=== PATIENT | female | born 1955 | race Caucasian/White ===

== ENCOUNTER 2017-09-12 20:06 | Emergency (ER) | payer OTHER ==
[~2017-09-12] VITALS: Ht 167.6 cm; Wt 78.5 kg
[~2017-09-12 20:06] MED LIST: ACET-787 PO; ATI.5 PO; CLOP75TA PO; DIVA500T1 PO
[2017-09-12 20:11] VITALS: BP 148/100
--- NOTE | 2017-09-12 20:12 | NUR ---
Dr. Walker evaluating patient at bedside.
--- NOTE | 2017-09-12 20:12 | NUR ---
PT JENNY ALS. TAKEN TO BED 4
--- NOTE | 2017-09-12 20:15 | NUR ---
PATIENT IS A 62 Y/O BIB [facility] WHO PRESENTS TO THE ED C/O CHEST PAIN. PT COMES FROM [facility]. WAS GIVEN NITRO 0.4 MG IN THE FIELD, R AC GAUGE 20 IN THE FIELD. PT STATES, "I WAS HAVING CHEST PAIN AND IT HURT." PT REPORTS 9/10 SHARP CHEST PAIN THAT DOES NOT RADIATE. PT REPORTS SOB, LUNG SOUNDS CLEAR BILATERALLY, DENIES N/V/D. PT AAOX4, RR EVEN/UNLABORED. PT REPOSITIONED FOR COMFORT, BED IN LOWEST POSITION. ER MD DR. TOSCANO NOTIFIED. WILL CONTINUE TO MONITOR.
[2017-09-12] MEDS ORDERED: ESCI10TA PO (20:18)
[2017-09-12] MEDS ORDERED: ASPI81CT89 PO (20:18)
[2017-09-12] MEDS ORDERED: DIPH25TA53 PO (20:18)
[2017-09-12] MEDS ORDERED: IBUP-1842 PO (20:18)
[2017-09-12] MEDS ORDERED: ARIP2TAB2 PO (20:18)
[2017-09-12] MEDS ORDERED: ARIP15TA1 PO (20:18)
[2017-09-12] MEDS ORDERED: NITROGLYCERIN 0.4 MG TAB SL ONE ×2 (20:25→21:55)
[2017-09-12 21:14] LABS: HEMATOCRIT 37.7 % (36-48); HEMOGLOBIN 12.9 g/dL (12.0-16.0); MEAN CORPUSCULAR HEMOGLOBIN 32 pg (27-31); MEAN CORPUSCULAR HGB CONC 34 g/dL (33-37); MEAN CORPUSCULAR VOLUME 95 fL (80-94); PLATELET COUNT (AUTO) 267 K/uL (140-450); RED BLOOD CELL COUNT(AUTO) 3.98 MIL/uL (4.20-5.40); RED CELL DISTRIBUTION WIDTH 13.7 % (11.6-13.7)
[2017-09-12 21:26] LABS: ANION GAP 12.4 (8-16); CREATININE 0.7 mg/dL (0.6-1.3); POTASSIUM 3.4 mmol/L (3.5-5.1)
[2017-09-12 21:27] LABS: BASOPHILS % (MANUAL) 0 % (0-2); EOSINOPHILS % (MANUAL) 6 % (0-4); LYMPHOCYTES % (MANUAL) 37 % (20-46); MONOCYTES % (MANUAL) 6 % (5-12)
[2017-09-12 21:28] LABS: ALBUMIN 3.5 g/dL (3.4-5.0); TOTAL BILIRUBIN 0.2 mg/dL (0.0-1.0)
[2017-09-12 21:37] LABS: CREATINE KINASE MB 4.8 ng/mL (0-3.6)
[2017-09-12 21:43] LABS: BARBITURATE, URINE NEG. ng/ml (NEG <=200); BENZODIAZEPINE, URINE NEG. ng/mL (NEG <=200); CANNABINOID, URINE NEG. ng/mL (NEG <=50); COCAINE, URINE NEG. ng/mL (NEG <=300); OPIATE, URINE NEG. ng/mL (NEG <=2000); PHENCYCLIDINE SCREEN,URINE NEG. ng/mL (NEG <=25)
[2017-09-12] MEDS ORDERED: LORazepam 2 MG/ML VIAL IVP PRN (22:10)
[2017-09-12] MEDS ORDERED: NITROGLYCERIN 0.4 MG TAB SL PRN (22:10)
[2017-09-12] MEDS ORDERED: ACETAMINOPHEN 325 MG TAB PO PRN (22:10)
[2017-09-12] MEDS ORDERED: ZOLPIDEM 5 MG TAB PO PRN (22:10)
[2017-09-12] MEDS ORDERED: MORPHINE SULFATE 2 MG/ML SYR IVP PRN (22:10)
[2017-09-12] MEDS ORDERED: ONDANSETRON 4 MG/2 ML VIAL IVP PRN (22:10)
[2017-09-12] MEDS ORDERED: POTASSIUM CHLORIDE 10 MEQ TABER PO ONE (22:20)
--- NOTE | 2017-09-12 22:45 | NUR ---
Patient will be admitted to care of DR. AMES. Admited to TELE. Will go to room 118. Belongings list completed. Report to PINA PLEITEZ.
[2017-09-12 22:50] VITALS: BP 156/87
--- NOTE | 2017-09-12 22:50 | NUR ---
PT ARRIVED ON UNIT VIA GURNEY FROM ER. PT HAD C/O CHEST PAIN. DX CHEST PAIN. PT IS AAOX4, AMBULATORY, NO S/S OF DISTRESS NOTED IN STABLE CONDITION. PT IS ON 2L O2 VIA NC. IV TO R HAND 20G, PATENT AND INTACT SALINE LOCK. SKIN IS INTACT, PT IS WARM AND DRY. COLOR WNL. BOWEL SOUNDS PRESENT. RESPIRATIONS EVEN AND UNLABORED. INITIAL ASSESSMENT COMPLETED. PLAN OF CARE DISCUSSED WITH PT AT THE BEDSIDE, PT VERBALIZED UNDERSTANDING. ALL SAFETY PRECAUTIONS MET, CALL LIGHT WITHIN REACH, WILL CONTINUE TO MONITOR
--- NOTE | 2017-09-12 23:05 | NUR ---
PAGED DR. AMES TO CLARIFY IF PT NEEDED FLUIDS. DR. AMES STATED PT WILL BE SALINE LOCK
--- NOTE | 2017-09-13 02:30 | NUR ---
PT RESTING IN BED COMFORTABLE, NO S/S OF DISTRESS NOTED. ALL SAFETY PRECAUTIONS MET, CALL LIGHT WITHIN REACH. WILL CONTINUE TO MONITOR
[2017-09-13 04:00] VITALS: BP 146/96
[2017-09-13 05:35] LABS: HEMATOCRIT 37.9 % (36-48); HEMOGLOBIN 12.7 g/dL (12.0-16.0); MEAN CORPUSCULAR HEMOGLOBIN 32 pg (27-31); MEAN CORPUSCULAR HGB CONC 34 g/dL (33-37); MEAN CORPUSCULAR VOLUME 95 fL (80-94); PLATELET COUNT (AUTO) 252 K/uL (140-450); RED BLOOD CELL COUNT(AUTO) 3.98 MIL/uL (4.20-5.40); RED CELL DISTRIBUTION WIDTH 13.7 % (11.6-13.7); WHITE BLOOD COUNT (AUTO) 6.6 K/uL (4.8-10.8)
[2017-09-13 06:04] LABS: CREATINE KINASE MB 3.5 ng/mL (0-3.6)
[2017-09-13 06:33] LABS: ANION GAP 8.4 (8-16); CARBON DIOXIDE 30.9 mmol/L (21-32); CREATININE 0.7 mg/dL (0.6-1.3); POTASSIUM 4.3 mmol/L (3.5-5.1)
[2017-09-13 06:53] LABS: EOSINOPHILS % (MANUAL) 2 % (0-4); LYMPHOCYTES % (MANUAL) 46 % (20-46); MONOCYTES % (MANUAL) 10 % (5-12)
--- NOTE | 2017-09-13 07:20 | NUR ---
ENDORSED PLAN OF CARE TO SHAKILA RN AT THE BEDSIDE FOR CONTINUATION OF CARE. PT REMAINS STABLE. NO S/S OF DISTRESS NOTED.
--- NOTE | 2017-09-13 07:21 | NUR ---
RECEIVED REPORT FROM THE CARDIOPULMONARY SPECIALIST NURSE AT BEDSIDE FOR CONTINUITY OF CARE. PT IS AWAKE AND ORIENTED. NO SIGNS OF DISTRESS. DENIED ANY SOB OR CHEST PAINS. PT IS WEARING A NC O2 2L, SATURATING AT 99%. I ASKED HER TO TAKE IT OFF AND TO SEE HOW SHE DOES WITHOUT THE NC. V/S WITHIN NORMAL LIMITS. PT SKIN IS INTACT. IV ON R HAND 20G SL. IV IS PATENT AND DRY AND INTACT. PER DR. FERREIRA, WAIT ON 3RD TROPONIN, IF NORMAL SHE CAN BE DC'D. WILL CONTINUE TO MONITOR PT.
[2017-09-13 08:00] VITALS: BP 149/91
[2017-09-13] MEDS ORDERED: METOPROLOL 25 MG TAB PO SCH (09:00)
[2017-09-13] MEDS ORDERED: ESCITALOPRAM 20 MG TAB PO SCH (09:00)
[2017-09-13] MEDS ORDERED: ENOXAPARIN 40 MG/0.4 ML SYR SUBQ SCH (09:00)
[2017-09-13] MEDS ORDERED: ASPIRIN 81 MG TAB.CHEW PO SCH ×2 (09:00)
[2017-09-13] MEDS ORDERED: ARIPiprazole 10 MG TAB PO SCH (09:00)
[2017-09-13] MEDS: IBUPROFEN 800 MG TAB PO SCH ×2 (09:12→13:00)
--- NOTE | 2017-09-13 09:22 | NUR ---
ADMINISTERED MORNING MEDS. HELD METOPROLOL D/T LOW HR 57. PT TOLERATED WELL. WILL CONTINUE TO MONITOR PT.
--- NOTE | 2017-09-13 10:02 | NUR ---
PATIENT HAS BEEN SCREENED AND CATEGORIZED MODERATE RISK. PATIENT WILL BE SEEN WITHIN 3-5 DAYS OF ADMISSION. 09/15/17 TO 09/17/[address]
--- NOTE | 2017-09-13 11:17 | NUR ---
PT RESTING COMFORTABLY. NO SIGNS OF SOB. WATCHING TV. DENIES PAIN. WILL CONTINUE TO MONITOR PT.
[2017-09-13 12:00] VITALS: BP 131/85
--- NOTE | 2017-09-13 13:00 | NUR ---
PT REFUSED IBUPROFEN. DID NOT ADMINISTER.
[2017-09-13 14:24] LABS: CREATINE KINASE MB 2.7 ng/mL (0-3.6)
[2017-09-13] MEDS ORDERED: ASPI81CT89 PO (15:01)
[2017-09-13] MEDS ORDERED: METO25TA PO (15:03)
[2017-09-13] MEDS ORDERED: NITR0.4T2 SL (15:05)
[2017-09-13] MEDS ORDERED: ATOR40TA PO (15:06)
--- NOTE | 2017-09-13 15:30 | NUR ---
CONTACTED THE BOARD AND CARE. NO COLLEGE SPORTS COACH. CALLED SON, OUT OF TOWN. CALLED THE DISHWASHING MACHINE OPERATOR FOR A TAXI VOUCHER.
--- NOTE | 2017-09-13 15:40 | NUR ---
GOT ALL PT MED FROM PHARMACY. GAVE TO PT TO TAKE WITH HER.
--- NOTE | 2017-09-13 15:50 | NUR ---
WENT OVER D/C INFORMATION W/ PT. PT VERBALIZED UNDERSTANDING. REMOVED THE TELE MONITOR, IV, CANNULA INTACT. NO BLEEDING NOTED. REMOVED ID BANDS. PT WILL GET DRESSED AND GATHER HER THINGS. WHEN THE TAXI CAB GETS HERE, WE WILL TAKE HER OUTSIDE.
--- NOTE | 2017-09-13 16:00 | NUR ---
CALLED AND REQUESTED A TAXI. HAVE THE VOUCHER. THEY WILL BE HERE IN 30 MIN.
--- NOTE | 2017-09-13 16:29 | NUR ---
GIORGIO WHEELED PT OUT TO THE LOBBY W/ VOUCHER IN HAND. PT WITH HER PERSONAL BELONGINGS. PT IN STABLE CONDITION.
[2017-09-13] MEDS ORDERED: diphenhydrAMINE 50 MG CAP PO PRN (21:00)
[2017-09-13] MEDS ORDERED: NON-FORMULARY ITEM (Aripiprazole (Abilify) 2 MG) PO SCH (21:00)
[2017-09-13] MEDS ORDERED: ABILIFY 2 MG PO SCH (21:00)
== END 2017-09-13 16:30 ==
LOC: MED 20:06 → MTU 22:12
PROVIDERS: ADMIT Hospitalist; ATTEND Hospitalist
DX: R07.89 Other chest pain (principal); R14.0 Abdominal distension (gaseous); K29.70 Gastritis, unspecified, without bleeding; I25.10 Atherosclerotic heart disease of native coronary artery without angina pectoris; I10 Essential (primary) hypertension; E78.00 Pure hypercholesterolemia, unspecified; F32.3 Major depressive disorder, single episode, severe with psychotic features; F41.9 Anxiety disorder, unspecified
CPT/HCPCS: 36415; 71010; 80048; 80053; 80305; 82550; 82553; 83690; 84484; 85025; 87081; 93005; 96372; 99285; G0378; J1650; Q0092

== ENCOUNTER 2017-10-09 19:28 | Inpatient (IN) | payer OTHER ==
[~2017-10-09] VITALS: Ht 167.6 cm; Wt 78.6 kg
[~2017-10-09 19:28] MED LIST changes: -ACET-787 PO; +ARIP15TA1 PO; +ARIP2TAB2 PO; +ASPI81CT89 PO; -ATI.5 PO; +ATOR40TA PO; -CLOP75TA PO; +DIPH25TA53 PO; -DIVA500T1 PO; +ESCI10TA PO; +IBUP-1842 PO; +METO25TA PO; +NITR0.4T2 SL
--- NOTE | 2017-10-09 19:30 | NUR ---
BIBA TO ER BED 4
[2017-10-09 19:38] VITALS: BP 158/85
--- NOTE | 2017-10-09 19:38 | NUR ---
Patient being evaluated by physician at bedside.
--- NOTE | 2017-10-09 19:42 | NUR ---
62Y F BIBA S/P MECHANICAL FALL X 1 HOUR FROM [facility]; C/O LOWER BACK AND LEFT LEG PAIN; PT DENIES ANY LOC;KO; NO COMPLAINT OF N/V/D/ SOB/CP AT THE MOMENT;
[2017-10-09 20:52] LABS: BASOPHILS # (AUTO) 0.4 K/uL (0.00-0.22); EOSINOPHILS # (AUTO) 0.4 K/uL (0-0.4); HEMATOCRIT 38.3 % (36-48); HEMOGLOBIN 12.9 g/dL (12.0-16.0); LYMPHOCYTES # (AUTO) 1.5 K/uL (2.5-16.5); MEAN CORPUSCULAR HEMOGLOBIN 31 pg (27-31); MEAN CORPUSCULAR HGB CONC 34 g/dL (33-37); MEAN CORPUSCULAR VOLUME 93 fL (80-94); MONOCYTES # (AUTO) 0.6 K/uL (0.8-1.0); NEUTROPHILS # (AUTO) 3.3 K/uL (1.8-7.7); PLATELET COUNT (AUTO) 233 K/uL (140-450); RED BLOOD CELL COUNT(AUTO) 4.11 MIL/uL (4.20-5.40); RED CELL DISTRIBUTION WIDTH 13.4 % (11.6-13.7); WHITE BLOOD COUNT (AUTO) 6.2 K/uL (4.8-10.8)
[2017-10-09 20:54] LABS: APPEARANCE,URINE CLEAR (CLEAR); BILIRUBIN,URINE NEGATIVE (NEGATIVE); BLOOD, URINE NEGATIVE (NEGATIVE); COLOR,URINE YELLOW (YELLOW); LEUKOCYTE ESTERASE ,URINE NEGATIVE (NEGATIVE); NITRITE, URINE NEGATIVE (NEGATIVE); UGLUCOSE NEGATIVE (NEGATIVE)
[2017-10-09 21:06] LABS: BARBITURATE, URINE NEG. ng/ml (NEG <=200); BENZODIAZEPINE, URINE NEG. ng/mL (NEG <=200); CANNABINOID, URINE NEG. ng/mL (NEG <=50); COCAINE, URINE NEG. ng/mL (NEG <=300); OPIATE, URINE NEG. ng/mL (NEG <=2000); PHENCYCLIDINE SCREEN,URINE NEG. ng/mL (NEG <=25)
[2017-10-09 21:07] LABS: ANION GAP 8.3 (8-16); CARBON DIOXIDE 31.3 mmol/L (21-32); CREATININE 0.7 mg/dL (0.6-1.3); POTASSIUM 3.6 mmol/L (3.5-5.1)
[2017-10-09 21:11] LABS: PROTHROMBIN TIME 10.2 secs (10.8-13.4)
[2017-10-09 21:12] LABS: ALBUMIN 3.4 g/dL (3.4-5.0); TOTAL BILIRUBIN 0.2 mg/dL (0.0-1.0)
[2017-10-09] MEDS ORDERED: ONDANSETRON 4 MG/2 ML VIAL IVP PRN (22:20)
[2017-10-09] MEDS ORDERED: ACETAMINOPHEN 325 MG TAB PO PRN (22:20)
[2017-10-09] MEDS ORDERED: LORazepam 2 MG/ML VIAL IVP PRN (22:20)
[2017-10-09] MEDS ORDERED: NITROGLYCERIN 0.4 MG TAB SL PRN (22:20)
--- NOTE | 2017-10-09 22:53 | NUR ---
APatient will be admitted to care of DR WHIPPLE. Admited to TELE 113. Will go to room 113. Belongings list completed. Report to PARAMJIT PLEITEZ .
[2017-10-09 23:00] VITALS: BP 132/75
--- NOTE | 2017-10-09 23:00 | NUR ---
PATIENT ADMITTED TO THE UNIT FROM ER. PATIENT AWAKE, ALERT AND ORIENTED. AMBULATORY. NO SIGNS AND SYMPTOMS OF DISTRESS NOTED. PATIENT COMPLAINED OF 6/10 LEG PAIN. WILL MEDICATE. IV SITE NOTED ON RIGHT AC. IV SITE ASYMPTOMATIC, INTACT AND PATENT. FALL RISK PRECAUTIONS AND SEIZURE PRECAUTIONS PUT IN PLACE. BED IN LOWEST POSITION, SIDE RAILS UP AND CALL LIGHT WITHIN REACH. WILL CONTINUE TO MONITOR.
[2017-10-09 23:41] LABS: CREATINE KINASE MB 5.3 ng/mL (0-3.6)
[2017-10-10] VITALS (9 sets, daily range): BP systolic 119–152; BP diastolic 74–89
[2017-10-10] MEDS: HYDROcodone/APAP 5/325 MG 1 TAB TAB PO PRN ×3 (00:15→12:56)
--- NOTE | 2017-10-10 07:31 | NUR ---
PATIENT REPORT GIVEN TO MORNING NURSE AT BEDSIDE. PATIENT IN STABLE CONDITION
[2017-10-10 07:35] LABS: CREATINE KINASE MB 3.5 ng/mL (0-3.6)
--- NOTE | 2017-10-10 07:35 | NUR ---
ENDORSEMENT RECEIVED FROM A MENTAL HYGIENE CONSULTANT NURSE. PATIENT'S RESPIRATION EVEN, UNLABOR. SKIN DRY AND WARM. CALL LIGHT WITHIN REACH. WILL CONTINUE TO MONITOR
--- NOTE | 2017-10-10 08:00 | NUR ---
PATIENT AWAKE, ALERT, ORIENTED X4. PUPILS EQUAL REACTIVE TO LIGHT. RESPIRATION EVEN, LUNGS SOUND CLEAR THROUGHOUT. CARDIAC WITH S1,S2 PRESENT. BOWEL SOUND ACTIVE 4 QUADRANTS. SKIN DRY AND WARM. DENIED N/V, PAIN AT THIS TIME. IV 20G LEFT AC NS @100 ML/HR, PATENT AND INTACT. CALL LIGHT WITHIN REACH. WILL CONTINUE TO MONITOR.
[2017-10-10] MEDS: NACL 0.9% 1,000 ML IV SCH ×3 (08:16→18:16)
[2017-10-10] MEDS: ESCITALOPRAM 20 MG TAB PO SCH (09:00)
[2017-10-10] MEDS ORDERED: IBUPROFEN 800 MG TAB PO SCH (09:00)
[2017-10-10] MEDS ORDERED: ASPIRIN 81 MG TAB.CHEW PO SCH (09:00)
[2017-10-10] MEDS ORDERED: METOPROLOL 25 MG TAB PO SCH (09:00)
[2017-10-10] MEDS ORDERED: ARIPiprazole 10 MG TAB PO SCH (09:00)
[2017-10-10] MEDS ORDERED: IBUPROFEN 800 MG TAB PO PRN (09:00)
[2017-10-10] MEDS: ASPIRIN 81 MG TAB.CHEW PO SCH (09:04)
[2017-10-10] MEDS: ENOXAPARIN 40 MG/0.4 ML SYR SUBQ SCH (09:05)
--- NOTE | 2017-10-10 09:56 | NUR ---
PATIENT HAS BEEN SCREENED AND CATEGORIZED MODERATE NUTRITION RISK. PATIENT WILL BE SEEN WITHIN 3-5 DAYS OF ADMISSION. 10/12/17-10/14/[address]
--- NOTE | 2017-10-10 10:02 | NUR ---
FAXED INITIAL REVIEW TO [facility] [phone] PHONE SRINATH [phone]
--- NOTE | 2017-10-10 10:30 | NUR ---
PATIENT IS AWAKE, ALERT. RESPIRATION EVEN. DENIED PAIN AT THIS TIME. NO DISTRESS NOTED. CALL LIGHT WITHIN REACH. WILL CONTINUE TO MONITOR
--- NOTE | 2017-10-10 11:28 | NUR ---
[id number] RECEIVED CALL FROM LUTHER ANDERSEN PROFESSIONAL BONDSMAN AT [facility] OFFICE [phone] AND SHE STATED THAT SHE WILL FAX OVER [employer] PAPERWORK. STATED THEY MAKE MEDICAL DECISIONS FOR PT BUT IF ANY TREATMENT REQUIRED IS EMERGENT THEN FACILITY SHOULD TREAT PT NEEDED.
--- NOTE | 2017-10-10 12:30 | NUR ---
PATIENT IS AWAKE, ALERT. RESPIRATION EVEN. COMPLAINED OF PAIN 6/10 ON THE LEG AND BACK. WILL MEDICATE PER ORDER. CALL LIGHT WITHIN REACH. WILL CONTINUE TO MONITOR
--- NOTE | 2017-10-10 17:00 | NUR ---
PATIENT AMBULATES WITH A WALKER, WITH RN ASSISTANCE. PATIENT TOLERATED WELL. HR 67. DR. MADRID WAS AT BEDSIDE.
--- NOTE | 2017-10-10 18:32 | NUR ---
PATIENT IS AWAKE, ALERT. SITTING IN BED. RESPIRATION EVEN. DENIED PAIN, DIZZINESS AT THIS TIME. CALL LIGHT WITHIN REACH. WILL CONTINUE TO MONITOR
--- NOTE | 2017-10-10 19:25 | NUR ---
ENDORSEMENT GIVEN TO THE EXCHANGE MECHANIC NURSE. PATIENT IS STABLE AT THIS TIME.
--- NOTE | 2017-10-10 19:36 | NUR ---
RECEIVED REPORT FROM DAY RN JESSENIA. PATIENT WAS SLEEPING, BUT EASY TO AROUSE, ORIENTED X3, NO S/S OF DISTRESS NOTED, RESPIRATION EVEN AND UNLABORED, IV PATENT AND INTACT, CALL LIGHT WITHIN REACH, SAFETY MEASURE ENSURED, WILL CONTINUE TO MONITOR.
[2017-10-10] MEDS ORDERED: diphenhydrAMINE 50 MG CAP PO PRN (21:00)
[2017-10-10] MEDS ORDERED: NON-FORMULARY ITEM (Aripiprazole (Abilify) 2 MG) PO SCH (21:00)
[2017-10-10] MEDS: ATORVASTATIN 20 MG TAB PO SCH (21:15)
--- NOTE | 2017-10-10 21:22 | NUR ---
DUE MEDICATION GIVEN, PATIENT TOLERATED WELL. NO S/S OF DISTRESS NOTED, RESPIRATION EVEN AND UNLABORED, CALL LIGHT WITHIN REACH, SAFETY MEASURE ENSURED, WILL CONTINUE TO MONITOR.
--- NOTE | 2017-10-10 22:55 | NUR ---
PATIENT STATED," I FEEL SHORT OF BREATH.", O2SAT 91%, HR 80, PUT PATIENT ON O2 NC 2L, O2SAT 97%, HR 81, PATIENT STATED," I FEEL MUCH BETTER." INSTRUCTED PATIENT TO CALL WHENEVER FEELS SHORT OF BREATH, PATIENT VERBALIZED UNDERSTANDING. CALL LIGHT WITHIN REACH, SAFETY MEASURE ENSURED, WILL CONTINUE TO MONITOR.
[2017-10-11] VITALS (7 sets, daily range): BP systolic 118–174; BP diastolic 66–98
--- NOTE | 2017-10-11 01:20 | NUR ---
PATIENT WAS SLEEPING, EASY TO AROUSE. VITAL SIGNS STABLE, O2SAT 97%, ON O2 NC 2L, NO S/S OF DISTRESS NOTED, RESPIRATION EVEN AND UNLABORED, CALL LIGHT WITHIN REACH, SAFETY MEASURE ENSURED, WILL CONTINUE TO MONITOR.
--- NOTE | 2017-10-11 03:03 | NUR ---
NO CHANGE IN CONDITION, PATIENT SLEEPING IN BED, RESPIRATION EVEN AND UNLABORED, CALL LIGHT WITHIN REACH, SAFETY MEASURE ENSURED, WILL CONTINUE TO MONITOR.
[2017-10-11] MEDS: NACL 0.9% 1,000 ML IV SCH ×2 (05:03→07:52)
--- NOTE | 2017-10-11 05:25 | NUR ---
IV PUMP BEEPING FREQUENTLY, PATIENT ASKED ME TO START NEW IV, NEW IV 22G STARTED ON RT WRIST, PATIENT TOLERATED WELL. CALL LIGHT WITHIN REACH, SAFETY MEASURE ENSURED, WILL CONTINUE TO MONITOR.
--- NOTE | 2017-10-11 07:25 | NUR ---
ENDORSED PLAN OF CARE TO STELLA MASSEY, PATIENT IS IN STABLE CONDITION.
--- NOTE | 2017-10-11 08:00 | NUR ---
Patient's Plan of Care was discussed and reviewed with [employer]BESTOS WORKER HELPER: BRYSON PATEL
[2017-10-11] MEDS: ASPIRIN 81 MG TAB.CHEW PO SCH (08:21)
[2017-10-11] MEDS: ESCITALOPRAM 20 MG TAB PO SCH (08:21)
[2017-10-11] MEDS: ENOXAPARIN 40 MG/0.4 ML SYR SUBQ SCH (08:24)
--- NOTE | 2017-10-11 09:00 | NUR ---
DR. WHIPPLE CAME, CHECKED PT. CHART. PER DR. WHIPPLE PT. WILL BE D/C TODAY 10/11/17, AND CONTINUE HOME MEDS. INFORMED DR. WHIPPLE ABOUT PT. VITAL SIGNS AT 0800. NO ORDER RECEIVED. INFORMED CHARGE NURSE KELVIN DAS.
--- NOTE | 2017-10-11 09:25 | NUR ---
ASSUMED CONTINUITY OF CARE. NO SIGNS AND SYMPTOMS OF ACUTE DISTRESS NOTED. INITIAL ASSESSMENT DONE. KEEP COMFORTABLE ON BED. EXPLAINED DIAGNOSIS, PLAN OF CARE, PAIN MANAGEMENT TEACHING, USE OF CALL LIGHT/BED/TV/BATHROOM. VERBALIZED UNDERSTANDING. SEIZURE AND FALL PRECAUTION APPLIED. CALL LIGHT WITHIN REACH.
--- NOTE | 2017-10-11 09:30 | NUR ---
EXPLAINED TO PT. ABOUT MD D/C ORDER, D/C INSTRUCTIONS AND TEACHING, HOME MEDICATIONS CONTINUATION EDUCATION, MD FOLLOW-UP, DISEASE MANAGEMENT TEACHING, PAIN MANAGEMENT TEACHING, DIET. VERBALIZED UNDERSTANDING.
--- NOTE | 2017-10-11 10:09 | NUR ---
CALLED [facility] AT REGARDING PT. D/C. NO RESPONSE RECEIVED. INFORMED CHARGE NURSE KELVIN DAS.
--- NOTE | 2017-10-11 10:16 | NUR ---
CALLED [facility] AT REGARDING PT. D/C. STILL NO RESPONSE RECEIVED. INFORMED CHARGE NURSE.
--- NOTE | 2017-10-11 11:04 | NUR ---
CALLED [facility] AT REGARDING PT. D/C. NO VOICE MAIL SET-UP. STILL NO RESPONSE RECEIVED. INFORMED CHARGE NURSE KELVIN DAS.
--- NOTE | 2017-10-11 12:15 | NUR ---
PAGED DR. WHIPPLE AT REGARDING PT. HIGH BP. LEFT CALLED BACK NUMBER.
--- NOTE | 2017-10-11 12:19 | NUR ---
DR. WHIPPLE CALLED BACK, INFORMED OF PT. VS AT 1200, 97.7 TEMPORAL SCAN, BP 174/98, HR 62, RESP 18, O2 SAT 97% ON 2L/MIN VIA NC. NO C/O PAIN. NO ACUTE DISTRESS NOTED. ALSO INFORMED DR. WHIPPLE ABOUT TELE STRIP AT 1159 SB WITH HEAR RATE OF 48. DR. WHIPPLE SAID HE WILL PUT ORDER FOR HIGH BP AND WILL CONTINUE PT. FOR D/C. INFORMED CHARGE NURSE KELVIN DAS.
--- NOTE | 2017-10-11 12:52 | NUR ---
CALLED MELIA LEW [facility] AT AND INFORMED THAT PT. WILL BE D/C TODAY PER MD ORDER. PER MELIA LEW HE CAN'T ACCEPT PT. DURING WEEKEND DUE TO STAFFING ISSUE AND HE ALREADY SPOKE WITH ALMITA -SILVER RECOVERY OPERATOR YESTERDAY ABOUT PT. BE D/C ON FRIDAY. INFORMED CHARGE NURSE KELVIN DAS. CHARGE NURSE KELVIN DAS CALLED TRANSFER MAN [facility] AND INFORMED OF MELIA LEW INFORMATION.
--- NOTE | 2017-10-11 13:23 | NUR ---
Social Service Note: I called [facility] and spoke with Love. Per Love, they do not have a driver's license examiner available on weekends. I informed her patient will be returning to their facility today. She stated patient's brother may provide transportation to return to facility from hospital. Love stated she does not know patient's brother name or phone number, however, reported patient knows his phone number, charge nurse Dora aware of above information.
--- NOTE | 2017-10-11 13:45 | NUR ---
PT STATED HE DOES NOT HAVE A BROTHER AND ALL HER RELATIVES ARE IN [facility], SHE DOES HAVE ASON IN spring BUT HE CAN NOT PICK HER UP AND BRING HER BACK IN [facility]. WASTE MACHINE TENDER JUAN RAMON NOTIFIED AND STATED TO ARRANGE PT'S TRANSPORTATION AND IF THEY DO ASK FOR AN AUTHORIZATION, [employer] WILL PROVIDE THEM BY FRIDAY. Addendum: 10/12/17 at 3322 by Dora Alvarado RN JORDAN
--- NOTE | 2017-10-11 13:55 | NUR ---
ARRANGED TRANSPORTATION WITH [facility], SPOKE WITH CRYSTAL, EARLIEST ETA THEY CAN GIVE IS AT 7 PM TONIGHT. JUAN RAMON LEE NOTIFIED. Addendum: 10/11/17 at 1416 by Dora Alvarado RN SVEN MADE AWARE.
--- NOTE | 2017-10-11 14:02 | NUR ---
Social Service Note: I called [facility] and spoke with Love. I informed Love patient will be transferred to their facility approximately after 7pm diana, she verbalized understanding.
--- NOTE | 2017-10-11 14:20 | NUR ---
PER COMMUTATOR UNDERCUTTER -JUAN RAMON, SHE CALLED [facility] AND PT. CAN BE D/C EVEN AFTER 190. CHARGE NURSE MADE AWARE.
--- NOTE | 2017-10-11 19:18 | NUR ---
BEDSIDE REPORT GIVEN TO JO BEAN IN STABLE CONDITION. ALSO ENDORSED ABOUT PT. D/C TO [facility].
--- NOTE | 2017-10-11 19:19 | NUR ---
PATIENT SITTING IN A CHAIR IN STABLE CONDITION READY TO BE PICKED UP BY [facility] PATIENT DENIES PAIN AT THIS TIME PATIENT STABLE.
--- NOTE | 2017-10-11 20:16 | NUR ---
SARA ERWIN FOLLOW UP ON [facility] AND TALKED TO NA, HE SAID AT 2100 BECAUSE THEY ARE COMING FROM [place], CALLED [facility] AND SPOKE TO MILTON REGARDING LATE ACCOUNT SERVICE REPRESENTATIVE TIME, SHE SAID "IT'S RAZ, WE CAN ACCEPT HER ANYTIME", STELLA OSORIO MADE AWARE.
[2017-10-11] MEDS: ATORVASTATIN 20 MG TAB PO SCH (20:36)
--- NOTE | 2017-10-11 20:36 | NUR ---
PATIENT TOOK HER ROUTINE MEDS TONIGHT.
--- NOTE | 2017-10-11 20:36 | NUR ---
FUND MANAGER NURSE EVAN CALLED [facility] AND HE WAS TOLD PATIENT WILL BE PICKED UP BY [facility] HE ALSO CALLED [facility] AND INFORMED THEM THAT PATIENT WILL BE PICKED UP FROM HERE AT [facility] AND THEY TOLD FUND MANAGER NURSE EVAN THAT THEY WILL STILL RECEIVE THE PATIENT.PATIENT IS AWARE THAT SHE WILL BE PICKED UP AT [facility] PATIENT VERBALIZES UNDERSTANDING.
--- NOTE | 2017-10-11 21:22 | NUR ---
[facility] CAME AND PICKED UP THE PATIENT BOTH IV SITES HAVE BEEN DISCONTINUED PATIENT HAS NO MORE IV ACCESS AND HAS NO TELEMONITOR AND HAS NO MORE ID WRIST BANDS. PATIENT'S DISCHARGE PAPERWORK GIVEN TO THE TRANSPORTATION PERSON TO TAKE TO [facility] AND PATIENT HAS ALL HER BELONGINGS PATIENT WAS DISCHARGE.
== END 2017-10-11 21:22 | DRG 204 ==
LOC: MED 19:28 → MTU 22:22
PROVIDERS: ADMIT Hospitalist; ATTEND Hospitalist
DX: R55 Syncope and collapse (principal); F25.9 Schizoaffective disorder, unspecified; I10 Essential (primary) hypertension; I25.10 Atherosclerotic heart disease of native coronary artery without angina pectoris; Z88.6 Allergy status to analgesic agent; Z88.2 Allergy status to sulfonamides
CPT/HCPCS: 36415; 70450; 71010; 80053; 80305; 81003; 81025; 82550; 82553; 83735; 83880; 84484; 85025; 85610; 85730; 87081; 93005; 99285; J1650; J7030

== ENCOUNTER 2017-11-25 08:51 | Observation (INO) | payer OTHER ==
[~2017-11-25] VITALS: Ht 161.3 cm; Wt 83.0 kg
[~2017-11-25 08:51] MED LIST changes: -ARIP15TA1 PO; -ARIP2TAB2 PO
[2017-11-25 08:55] VITALS: BP 136/77
[2017-11-25] MEDS ORDERED: NITROGLYCERIN 0.4 MG TAB SL ONE ×2 (09:40→09:58)
[2017-11-25] MEDS ORDERED: ASPIRIN 81 MG TAB.CHEW PO ONE (09:40)
[2017-11-25 09:54] LABS: BASOPHILS # (AUTO) 0.2 K/uL (0.00-0.22); BASOPHILS % (AUTO) 2.2 % (0.0-2.0); EOSINOPHILS # (AUTO) 0.9 K/uL (0-0.4); EOSINOPHILS % (AUTO) 13.8 % (0.0-4.0); HEMATOCRIT 46.6 % (36-48); HEMOGLOBIN 15.2 g/dL (12.0-16.0); LYMPHOCYTES # (AUTO) 1.7 K/uL (2.5-16.5); LYMPHOCYTES % (AUTO) 25.5 % (20.5-51.1); MEAN CORPUSCULAR HEMOGLOBIN 31 pg (27-31); MEAN CORPUSCULAR HGB CONC 33 g/dL (33-37); MEAN CORPUSCULAR VOLUME 94 fL (80-94); MONOCYTES # (AUTO) 0.4 K/uL (0.8-1.0); MONOCYTES % (AUTO) 6.5 % (1.7-9.3); NEUTROPHILS # (AUTO) 3.6 K/uL (1.8-7.7); PLATELET COUNT (AUTO) 250 K/uL (140-450); RED BLOOD CELL COUNT(AUTO) 4.94 MIL/uL (4.20-5.40); RED CELL DISTRIBUTION WIDTH 14.2 % (11.6-13.7); WHITE BLOOD COUNT (AUTO) 6.8 K/uL (4.8-10.8)
[2017-11-25 10:03] LABS: ANION GAP 10.8 (8-16); CREATININE 0.7 mg/dL (0.6-1.3); POTASSIUM 3.8 mmol/L (3.5-5.1)
[2017-11-25 10:13] LABS: ALBUMIN 3.6 g/dL (3.4-5.0); TOTAL BILIRUBIN 0.4 mg/dL (0.0-1.0)
[2017-11-25] MEDS ORDERED: MORPHINE SULFATE 2 MG/ML SYR IVP PRN (10:55)
[2017-11-25] MEDS ORDERED: ZOLPIDEM 5 MG TAB PO PRN (10:55)
[2017-11-25] MEDS ORDERED: ONDANSETRON 4 MG/2 ML VIAL IVP PRN (10:55)
[2017-11-25] MEDS ORDERED: ACETAMINOPHEN 325 MG TAB PO PRN (10:55)
[2017-11-25 12:00] VITALS: BP 127/69
[2017-11-25 16:00] VITALS: BP 112/70
[2017-11-25 20:00] VITALS: BP 114/65
[2017-11-25] MEDS ORDERED: NICOTINE TRANSD SYS 14 MG/24 HR PATCH TD SCH (20:00)
[2017-11-25] MEDS: METOPROLOL 25 MG TAB PO SCH (21:00)
[2017-11-26] VITALS: BP 107/75
[2017-11-26 04:00] VITALS: BP 116/75
[2017-11-26 06:39] LABS: BASOPHILS # (AUTO) 0.3 K/uL (0.00-0.22); BASOPHILS % (AUTO) 3.9 % (0.0-2.0); EOSINOPHILS # (AUTO) 1.1 K/uL (0-0.4); EOSINOPHILS % (AUTO) 14.7 % (0.0-4.0); HEMATOCRIT 37.5 % (36-48); HEMOGLOBIN 12.7 g/dL (12.0-16.0); LYMPHOCYTES # (AUTO) 1.7 K/uL (2.5-16.5); LYMPHOCYTES % (AUTO) 23.2 % (20.5-51.1); MEAN CORPUSCULAR HEMOGLOBIN 32 pg (27-31); MEAN CORPUSCULAR HGB CONC 34 g/dL (33-37); MEAN CORPUSCULAR VOLUME 93 fL (80-94); MONOCYTES # (AUTO) 0.5 K/uL (0.8-1.0); MONOCYTES % (AUTO) 7.3 % (1.7-9.3); NEUTROPHILS # (AUTO) 3.8 K/uL (1.8-7.7); NEUTROPHILS % (AUTO) 50.9 % (42.2-75.2); PLATELET COUNT (AUTO) 238 K/uL (140-450); RED BLOOD CELL COUNT(AUTO) 4.03 MIL/uL (4.20-5.40); RED CELL DISTRIBUTION WIDTH 13.8 % (11.6-13.7); WHITE BLOOD COUNT (AUTO) 7.4 K/uL (4.8-10.8)
[2017-11-26 07:34] LABS: ANION GAP 13.4 (8-16); CARBON DIOXIDE 27.4 mmol/L (21-32); CREATININE 0.8 mg/dL (0.6-1.3); POTASSIUM 3.8 mmol/L (3.5-5.1)
[2017-11-26 07:46] VITALS: BP 125/78
[2017-11-26] MEDS: METOPROLOL 25 MG TAB PO SCH (08:18)
[2017-11-26] MEDS ORDERED: ENOXAPARIN 40 MG/0.4 ML SYR SUBQ SCH (09:00)
[2017-11-26] MEDS ORDERED: ASPIRIN 81 MG TAB.CHEW PO SCH (09:00)
[2017-11-26] MEDS: LORazepam 2 MG/ML VIAL IVP PRN ×2 (09:13→17:18)
[2017-11-26 11:54] VITALS: BP 146/77
[2017-11-26 12:06] LABS: CREATINE KINASE MB 1.5 ng/mL (0-3.6)
[2017-11-26 15:35] VITALS: BP 129/78
== END 2017-11-26 17:45 ==
LOC: MED 08:51 → MTU 10:45 → INTOOBSV 10:45
PROVIDERS: ADMIT Hospitalist; ATTEND Hospitalist
DX: R07.2 Precordial pain (principal); I25.10 Atherosclerotic heart disease of native coronary artery without angina pectoris; E11.9 Type 2 diabetes mellitus without complications; E78.5 Hyperlipidemia, unspecified; F41.9 Anxiety disorder, unspecified; I11.9 Hypertensive heart disease without heart failure; F17.210 Nicotine dependence, cigarettes, uncomplicated; Z90.710 Acquired absence of both cervix and uterus; Z95.5 Presence of coronary angioplasty implant and graft
CPT/HCPCS: 36415; 71045; 80048; 80053; 82550; 82553; 84484; 85025; 87081; 93005; 96372; 96374; 96376; 99285; G0378; J1650; J2060; Q0092

== ENCOUNTER 2018-05-20 10:05 | Emergency (ER) | payer OTHER ==
[~2018-05-20] VITALS: Ht 167.6 cm; Wt 86.2 kg
[~2018-05-20 10:05] MED LIST changes: +ARIP15TA1 PO; +ARIP5TAB8 PO; -METO25TA PO; -NITR0.4T2 SL
[2018-05-20 10:15] VITALS: BP 114/63
--- NOTE | 2018-05-20 10:24 | NUR ---
AMBULATES WITH WALKER TO BED 4 WITH STEADY GAIT
--- NOTE | 2018-05-20 10:30 | NUR ---
62 YO PT C/O BACK PAIN, LLQ ABD PAIN, SOB, AND BILAT LEG SWELLING/EDEMA X 2 MONTHS. DENIES INJURY. DENIES N/V/DIZZINESS. PT STATES SHE HAS CHF BUT HAS NOT BEEN TREATED FOR IT. PT REPORTS INTERMITTENT CONSTIPATION THAT HAS BEEN IMPROVING OVER THE LAST FEW DAYS. REPORTS SHE USUALLY TAKES IBUPROFEN FOR HER PAIN, BUT HER BOARD AND CARE IS "ALL OUT''. PT AAOX4. GCS 15. CMS INTACT. RR EVEN AND UNLABORED. LUNGS CLEAR. SINUS CLAUDETTE NOTED, WITH HR 48. ABD SOFT, NON-TENDER. ER MD NOTIFIED. PT NEEDS MET. SAFETY PRECAUTIONS IN PLACE. WILL CONTINUE TO MONITOR.
--- NOTE | 2018-05-20 10:43 | NUR ---
XRAY AT BEDSIDE
--- NOTE | 2018-05-20 10:43 | NUR ---
XRAY AT BEDSIDE AT THIS TIME.
[2018-05-20 11:29] VITALS: BP 103/63
--- NOTE | 2018-05-20 11:30 | NUR ---
Patient discharged with v/s stable. Written and verbal after care instructions given and explained. Patient alert, oriented and verbalized understanding of instructions. Ambulatory with steady gait on walker. All questions addressed prior to discharge. ID band removed. Patient advised to follow up with PMD. Rx of MiraLax, Mineral oil, and Motrin given. Patient educated on indication of medication including possible reaction and side effects. Opportunity to ask questions provided and answered.
== END 2018-05-20 11:30 | disposition home or self-care (01) ==
LOC: MED 10:05
DX: K59.00 Constipation, unspecified (principal); R60.0 Localized edema; I10 Essential (primary) hypertension; I25.2 Old myocardial infarction; Z88.6 Allergy status to analgesic agent; Z88.2 Allergy status to sulfonamides; Z79.899 Other long term (current) drug therapy; Z86.73 Personal history of transient ischemic attack (TIA), and cerebral infarction without residual deficits; Z85.42 Personal history of malignant neoplasm of other parts of uterus
CPT/HCPCS: 74018; 99283; Q0092

== ENCOUNTER 2018-06-22 00:46 | Emergency (ER) | payer OTHER ==
[~2018-06-22] VITALS: Ht 165.1 cm; Wt 85.7 kg
[2018-06-22 00:50] VITALS: BP 146/81
[2018-06-22] MEDS ORDERED: cefTRIAXone 1,000 MG in LIDOCAINE MPF 1% - 5 mL VIAL 2.1 ML IM ONE (01:30)
[2018-06-22] MEDS ORDERED: KETOROLAC 60 MG/2 ML VIAL IM ONE (01:30)
[2018-06-22 02:32] VITALS: BP 133/73
== END 2018-06-22 02:32 | disposition home or self-care (01) ==
LOC: MED 00:46
DX: N39.0 Urinary tract infection, site not specified (principal); M79.1 Myalgia; I10 Essential (primary) hypertension; Z88.8 Allergy status to other drugs, medicaments and biological substances; Z79.82 Long term (current) use of aspirin; Z79.899 Other long term (current) drug therapy; Z85.42 Personal history of malignant neoplasm of other parts of uterus; Z86.73 Personal history of transient ischemic attack (TIA), and cerebral infarction without residual deficits
CPT/HCPCS: 81002; 96372; 99284; J0696; J1885; J2001

== ENCOUNTER 2018-10-12 01:40 | Inpatient (IN) | payer OTHER ==
[~2018-10-12] VITALS: Ht 167.6 cm; Wt 99.0 kg
[2018-10-12 01:40] VITALS: BP 109/68
--- NOTE | 2018-10-12 01:40 | NUR ---
PT JENNY ALS. TAKEN TO BED 10
--- NOTE | 2018-10-12 01:41 | NUR ---
Dr. Walker evaluating patient at bedside.
--- NOTE | 2018-10-12 01:52 | NUR ---
EKG PERFORMED AT BEDSIDE. PT COVERED IN GOWN DURING PROCEDURE
--- NOTE | 2018-10-12 01:53 | NUR ---
PATIENT BIBA FOR SUBSTERNAL CHEST PAIN. PT STATES CHEST PAIN WOKE HER UP 2 HOURS AGO AND WAS RADIATING DOWN TO KNEES; PAIN FEELS LIKE PRESSURE AND IS 5/10. PT STATES SHE FEELS SOB, HAS HAD A PRODUCTIVE COUGH FOR 2 MONTHS WITH YELLOWS SPUTUM, RR NON-LABORED, SYMMETRICAL, AND LUNG SOUNDS CLER THROUGHOUT. PT REPORTS N/V; SKIN IS PINK/WARM/DRY; AAOX4; VSS; PATIENT POSITIONED FOR COMFORT; HOB ELEVATED; BEDRAILS UP X2; BED DOWN. ER MD MADE AWARE OF PT STATUS. MED HX: 4 CO, STENTS PLACED
[2018-10-12] MEDS ORDERED: ASPIRIN 81 MG TAB.CHEW PO ONE (01:55)
[2018-10-12] MEDS ORDERED: NITROGLYCERIN 0.4 MG TAB SL ONE (01:55)
--- NOTE | 2018-10-12 02:05 | NUR ---
X-Ray at bedside.
[2018-10-12] MEDS ORDERED: MORPHINE SULFATE 2 MG/ML SYR IVP ONE (02:20)
[2018-10-12 02:35] LABS: BASOPHILS % (AUTO) 0.2 % (0.0-2.0); EOSINOPHILS # (AUTO) 0.3 K/uL (0-0.4); HEMATOCRIT 37.3 % (36-48); HEMOGLOBIN 12.4 g/dL (12.0-16.0); LYMPHOCYTES # (AUTO) 1.6 K/uL (2.5-16.5); LYMPHOCYTES % (AUTO) 18.4 % (20.5-51.1); MEAN CORPUSCULAR HEMOGLOBIN 31 pg (27-31); MEAN CORPUSCULAR HGB CONC 33 g/dL (33-37); MEAN CORPUSCULAR VOLUME 93.4 fL (80-94); MONOCYTES # (AUTO) 0.8 K/uL (0.8-1.0); MONOCYTES % (AUTO) 9.3 % (1.7-9.3); NEUTROPHILS # (AUTO) 5.9 K/uL (1.8-7.7); NEUTROPHILS % (AUTO) 69.1 % (42.2-75.2); PLATELET COUNT (AUTO) 250 K/uL (140-450); RED CELL DISTRIBUTION WIDTH 14.7 % (11.6-13.7); WHITE BLOOD COUNT (AUTO) 8.5 K/uL (4.8-10.8)
--- NOTE | 2018-10-12 02:42 | NUR ---
PT RESTING IN BNED. VSS. PATIENT STATES PAIN IS DOWN TO 4/10. SAFETY PRECAUTIONS IN PLACE. CONTINUE TO MONITOR
[2018-10-12 02:55] LABS: ALBUMIN 3.3 g/dL (3.4-5.0); ANION GAP 15.1 (8-16); CARBON DIOXIDE 27.9 mmol/L (21-32); TOTAL BILIRUBIN 0.5 mg/dL (0.0-1.0)
[2018-10-12 03:14] LABS: CREATINE KINASE MB 0.4 ng/mL (0-3.6)
[2018-10-12] MEDS ORDERED: NITROGLYCERIN 0.4 MG TAB SL PRN (04:10)
--- NOTE | 2018-10-12 04:21 | NUR ---
Patient will be admitted to care of CLYDE FRYE. Admited to TELE. PT IN ROOM 121A. VSS. Belongings list completed. Report to FANNY PLEITEZ.
--- NOTE | 2018-10-12 04:25 | NUR ---
RECEIVED REPORT FROM OYSTER UNLOADER FOR CONTINUITY OF CARE. PT IS A/OX4, ON 2L O2 VIA NASAL CANNULA. PT AMBULATES WITH ASSISTANCE, AND SKIN IS PINK/WARM/DRY AND INTACT. PT HAS LEFT SIDED RESIDUAL WEAKNESS POST HX: CVA AND SPEECH IS SLIGHTLY SLURRED. PT IS ABLE TO MAKE NEEDS KNOWN, AND ABLE TO FOLLOW COMMANDS. LUNGS SOUNDS DIMINISHED, HR EVEN AND REGULAR. PT HAS 20G IV TO RIGHT HAND, ASYMPTOMATIC AND INTACT. PT DENIES ANY PAIN AT THIS TIME. INITIATED FALL RISK PROTOCOL, APPLIED ALLERGY ARMBAND AND CONTACT ISOLATION SIGN ON ROOM. TOOK MRSA SWAB AND SENT TO LAB. VITAL SIGNS STABLE. NO SIGNS OF DISTRESS NOTED. PT POSITIONED FOR COMFORT. BED RAILS UP X2, BED IN LOWEST POSITION. CALL LIGHT WITHIN REACH. WILL CONTINUE TO MONITOR.
[2018-10-12 05:00] VITALS: BP 100/56
--- NOTE | 2018-10-12 05:00 | NUR ---
CALLED [facility] TO OBTAIN VACCINE RECORDS, NO ANSWER.
--- NOTE | 2018-10-12 05:40 | NUR ---
CALLED [facility] [place] [facility] AGAIN TO OBTAIN VACCINE RECORDS, NO ONE ANSWERED STILL.
--- NOTE | 2018-10-12 06:01 | NUR ---
CARDIAC PANEL ORDERD FOR 0356 NOT DRAWN ITS TO CLOSE FROM THE FIRST ONE, UNABLE TO CANCEL.
--- NOTE | 2018-10-12 07:32 | NUR ---
ENDORSED PT TO DAY SHIFT MAIK ASTUDILLO FOR CONTINUITY OF CARE. PT IN STABLE CONDITION.
--- NOTE | 2018-10-12 07:33 | NUR ---
RECEIVED REPORT FROM NIGHT NURSE. PT IN STABLE CONDITION. RESPIRATIONS EVEN AND UNLABORED. IV 20G, RIGHT HAND, INTACT AND PATENT. BED IN LOW POSITION. REVIEWED CARE PLAN WITH PT, PT VERBALIZED UNDERSTANDING OF PLAN. SAFETY MEASURES IN PLACE. CALL LIGHT AT BEDSIDE. WILL CONTINUE TO MONITOR.
[2018-10-12 08:00] VITALS: BP 102/66
--- NOTE | 2018-10-12 08:06 | NUR ---
PATIENT HAS BEEN SCREENED AND CATEGORIZED MODERATE NUTRITION RISK. PATIENT WILL BE SEEN WITHIN 3-5 DAYS OF ADMISSION. 10/14/18 10/16/[address]
[2018-10-12] MEDS ORDERED: ASPIRIN 81 MG TAB.CHEW PO SCH (09:00)
--- NOTE | 2018-10-12 09:00 | NUR ---
GAVE DUE ORDERED MEDICATION, PT TOLERATED WELL. ASSISTED PT TO RESTROOM WITH STANDBY ASSIST. PT IN STABLE CONDITION. BED IN LOW POSITION. WILL CONTINUE TO MONITOR.
[2018-10-12] MEDS ORDERED: ACETAMINOPHEN 325 MG SUPP RC PRN (09:15)
[2018-10-12] MEDS ORDERED: MORPHINE SULFATE 2 MG/ML SYR IVP PRN (09:15)
--- NOTE | 2018-10-12 10:30 | NUR ---
PT REFUSED TO BE CLEANED BY DESTINATION SIGN REPAIRER STATING SHE WILL BE GOING HOME SOON. PT WAS INFORMED THAT NO ORDERS ARE IN AT THIS TIME FOR HER TO GO HOME. WILL TRY AGAIN LATER DURING SHIFT.
[2018-10-12 11:05] LABS: CREATINE KINASE MB 1.6 ng/mL (0-3.6)
--- NOTE | 2018-10-12 11:15 | NUR ---
PT'S SON ROSSY CALLED TO RECEIVE PT STATUS. PT VERBALIZED PERMISSION TO GIVE SON ROSSY THE INFORMATION, PT DID NOT WANT TO TALK AT THIS TIME. ROSSY
--- NOTE | 2018-10-12 11:20 | NUR ---
CALLED [facility] WHERE PT STAYS TO RECEIVE MEDICATIONS LIST. STAFF WILL FAX MEDICATIONS LIST.
[2018-10-12 12:00] VITALS: BP 112/68
--- NOTE | 2018-10-12 14:00 | NUR ---
PT WATCHING TV LYING IN BED IN STABLE CONDITION. WILL CONTINUE TO MONITOR.
[2018-10-12] MEDS ORDERED: FURO-572 PO (14:57)
[2018-10-12] MEDS ORDERED: BUS5 PO (14:57)
[2018-10-12] MEDS ORDERED: METO25TA PO (14:57)
[2018-10-12] MEDS ORDERED: AMLO10TA PO (14:57)
[2018-10-12] MEDS ORDERED: QUET300T1 PO (14:57)
[2018-10-12] MEDS ORDERED: HYDR25CA1 PO (14:57)
[2018-10-12] MEDS ORDERED: ATOR40TA PO (14:57)
[2018-10-12] MEDS ORDERED: IBUP-2213 PO (14:57)
[2018-10-12] MEDS ORDERED: BENZ1TAB PO (14:57)
[2018-10-12] MEDS ORDERED: RANI15SY PO (14:57)
[2018-10-12] MEDS ORDERED: ASPI81EC98 PO (14:57)
--- NOTE | 2018-10-12 15:00 | NUR ---
SEBAS DOMINGUEZ OF [facility] (PCP) PH# [phone] SCHEDULED PATIENT FOR OUTPATIENT FOLLOW UP ON OCTOBER 19, 2018 9:45 AM AT THE CLINIC IN [address] [place] [address]. I GAVE THE PATIENT A COPY OF HER OUTPATIENT FOLLOW UP SCHEDULE.
[2018-10-12 16:00] VITALS: BP 127/78
--- NOTE | 2018-10-12 17:20 | NUR ---
PT GIVEN DISCHARGE INSTRUCTIONS PACKET, APPOINTMENT DATE FOR FOLLOW UP, ALL QUESTIONS ANSWERED AT THIS TIME, PT VERBALIZED UNDERSTANDING OF INSTRUCTIONS. IV REMOVED, LUMEN INTACT. ID REMOVED. PT WHEELED TO LOBBY WHERE [facility] [employer] HOME BATTERY CONTAINER FINISHING HAND WAS WAITING. PT IN STABLE CONDITION.
[2018-10-12] MEDS ORDERED: ATORVASTATIN 20 MG TAB PO SCH (21:00)
== END 2018-10-12 17:20 | disposition home or self-care (01) | DRG 203 ==
LOC: MED 01:40 → MTU 03:44 → OBSVTOIN 05:08
PROVIDERS: ADMIT Hospitalist; ATTEND Hospitalist
DX: M94.0 Chondrocostal junction syndrome [Tietze] (principal); I69.354 Hemiplegia and hemiparesis following cerebral infarction affecting left non-dominant side; R07.89 Other chest pain; I25.10 Atherosclerotic heart disease of native coronary artery without angina pectoris; I10 Essential (primary) hypertension; I25.2 Old myocardial infarction; Z95.5 Presence of coronary angioplasty implant and graft; Z88.6 Allergy status to analgesic agent; Z88.2 Allergy status to sulfonamides; Z85.42 Personal history of malignant neoplasm of other parts of uterus; Z90.710 Acquired absence of both cervix and uterus; Z87.891 Personal history of nicotine dependence
CPT/HCPCS: 96374; 99285; G0378; 36415; 71045; 80053; 82550; 82553; 83690; 84484; 85025; 87081; 93005; G0482; J2270; Q0092

== ENCOUNTER 2018-12-10 17:00 | Emergency (ER) | payer OTHER ==
[~2018-12-10] VITALS: Ht 165.1 cm; Wt 117.5 kg
[~2018-12-10 17:00] MED LIST changes: +AMLO10TA PO; -ARIP15TA1 PO; -ARIP5TAB8 PO; -ASPI81CT89 PO; +ASPI81EC98 PO; +BENZ1TAB PO; +BUS5 PO; -DIPH25TA53 PO; -ESCI10TA PO; +FURO-572 PO; +HYDR25CA1 PO; -IBUP-1842 PO; +IBUP-2213 PO; +METO25TA PO; +QUET300T1 PO; +RANI15SY PO
[2018-12-10 17:02] VITALS: BP 140/90
--- NOTE | 2018-12-10 17:08 | NUR ---
63 YO FEMALE BIB EMS FROM [facility] FOR LUMBAR BACK PAIN. AWAKE AND ALERT ON ARRIVAL. PT VSS AT THIS TIME, PT STATES SHE FINANCIAL BROKERS A BOX YESTERDAY AND HURT HER BACK. SHE WENT TO URGENT CARE EARLIER TODAY AND WITH NO RELIEF. PT BED DOWN, BEDRAIL UP, ER MD AWARE AND NOTIFIED OF PT STATUS. PMH: HTN, STENT
[2018-12-10] MEDS ORDERED: KETOROLAC 60 MG/2 ML VIAL IM ONE (17:45)
--- NOTE | 2018-12-10 17:45 | NUR ---
Patient being evaluated by physician at bedside.
[2018-12-10 19:05] VITALS: BP 135/84
--- NOTE | 2018-12-10 19:05 | NUR ---
Patient discharged with v/s stable. Written and verbal after care instructions given and explained. Patient alert, oriented and verbalized understanding of instructions. Ambulatory with steady gait. All questions addressed prior to discharge. ID band removed. Patient advised to follow up with PMD. Rx of motrin, cipro, and norco given. Patient educated on indication of medication including possible reaction and side effects. Opportunity to ask questions provided and answered.
== END 2018-12-10 19:05 | disposition home or self-care (01) ==
LOC: MED 17:00
DX: N39.0 Urinary tract infection, site not specified (principal); I10 Essential (primary) hypertension; Z88.5 Allergy status to narcotic agent; Z79.82 Long term (current) use of aspirin; Z79.899 Other long term (current) drug therapy
CPT/HCPCS: 81002; 96372; 99283; J1885

== ENCOUNTER 2019-01-29 08:42 | Inpatient (IN) | payer OTHER ==
[~2019-01-29] VITALS: Ht 170.2 cm; Wt 112.9 kg
[2019-01-29 08:44] VITALS: BP 123/70
--- NOTE | 2019-01-29 08:44 | NUR ---
PT BIBA BLS TO BED 7
--- NOTE | 2019-01-29 08:44 | NUR ---
PT BIBA FOR GENERALIZED WEAKNESS. PER MFD PT WAS CHOKING, STAFF AT [facility] PERFORMED HE[place]LICH AND REOMVED FOOD, AND AFTER THAT PT WAS UNABLE TO STAND. PT IS AAOX3, PERRLA, SPEECH IS SLURRED, MILD LEFT SIDED HAND TREATING PLANT PUMPER WEAKNESS, UNSTEADY GAIT. PT STATES THE YEAR WAS "1970", PER MFD SLURRED SPEECH IS PT BASELINE. PT REPORTS SHARP R LEG PAIN AT 3/10 THAT INCREASES WITH MOVEMENT THAT SHE HAS HAD FOR YEARS. VSS. ER TO SEE PT. MEDHX:PR, STENT, CVA, HTN, ANXIETY, HYPERLIPIDEMIA RX:ASPIRIN, LASIX, ATROVASTATIN, AMLODIPINE, HYDROXYZINE, BUSPIRONE, QUETIAPINE, METROPOLOL, BENZZTROPINE, DIELOTENAE
[2019-01-29] MEDS ORDERED: VOL25 PO (08:56)
--- NOTE | 2019-01-29 09:17 | NUR ---
Patient being evaluated by physician at bedside.
[2019-01-29] MEDS ORDERED: NACL 0.9% 500 ML IV SCH (09:20)
--- NOTE | 2019-01-29 09:39 | NUR ---
RT AT BEDSIDE PERFORMING ABG
--- NOTE | 2019-01-29 09:40 | NUR ---
LAB AT BEDSIDE OBTAINING BLOOD SAMPLES
[2019-01-29] MEDS ORDERED: NACL 0.9% 1,000 ML IV ONE (09:45)
--- NOTE | 2019-01-29 09:46 | NUR ---
XRAY AT BEDSIDE
--- NOTE | 2019-01-29 09:53 | NUR ---
PT TAKEN TO RADIOLOGY VIA HIREN
[2019-01-29 09:54] LABS: BASOPHILS # (AUTO) 0.1 K/uL (0.00-0.22); BASOPHILS % (AUTO) 1.3 % (0.0-2.0); EOSINOPHILS # (AUTO) 0.4 K/uL (0-0.4); HEMATOCRIT 39.9 % (36-48); LYMPHOCYTES # (AUTO) 1.5 K/uL (2.5-16.5); LYMPHOCYTES % (AUTO) 25.7 % (20.5-51.1); MEAN CORPUSCULAR HEMOGLOBIN 30 pg (27-31); MEAN CORPUSCULAR HGB CONC 33 g/dL (33-37); MEAN CORPUSCULAR VOLUME 92.5 fL (80-94); MONOCYTES # (AUTO) 0.5 K/uL (0.8-1.0); MONOCYTES % (AUTO) 9.1 % (1.7-9.3); NEUTROPHILS # (AUTO) 3.5 K/uL (1.8-7.7); NEUTROPHILS % (AUTO) 57.9 % (42.2-75.2); PLATELET COUNT (AUTO) 245 K/uL (140-450); RED BLOOD CELL COUNT(AUTO) 4.32 MIL/uL (4.20-5.40); RED CELL DISTRIBUTION WIDTH 15.4 % (11.6-13.7)
[2019-01-29 10:09] LABS: PROTHROMBIN TIME 9.9 secs (10.8-13.4)
[2019-01-29 10:13] LABS: ALBUMIN 3.4 g/dL (3.4-5.0); ANION GAP 13.1 (8-16); CARBON DIOXIDE 28.2 mmol/L (21-32); POTASSIUM 4.3 mmol/L (3.5-5.1); TOTAL BILIRUBIN 0.4 mg/dL (0.0-1.0)
--- NOTE | 2019-01-29 10:15 | NUR ---
PT WAS PUT ON BEDPAN TO OBTAIN URINE SAMPLE. FAISAL ADEN ASSISTING PT WITH GETTING OFF BED LINDSAY, CLEANING PT, AND OBTAINING URINE SAMPLE
[2019-01-29 10:49] LABS: D-DIMER < 100 ng/ml (0-400)
[2019-01-29 11:09] LABS: APPEARANCE,URINE SL CLOUDY (CLEAR); BILIRUBIN,URINE NEGATIVE (NEGATIVE); BLOOD, URINE NEGATIVE (NEGATIVE); COLOR,URINE YELLOW (YELLOW); LEUKOCYTE ESTERASE ,URINE 1+ (NEGATIVE); NITRITE, URINE NEGATIVE (NEGATIVE); PH,URINE 8.5 (5.0-9.0); UGLUCOSE NEGATIVE (NEGATIVE)
[2019-01-29 11:34] LABS: RBC,URINE 0-5 /HPF (0-5)
[2019-01-29] MEDS ORDERED: ONDANSETRON 4 MG/2 ML VIAL IVP PRN (13:15)
[2019-01-29] MEDS ORDERED: ALBUTEROL 0.083% 2.5 MG/3 ML NEBU INH PRN (13:15)
[2019-01-29 14:15] VITALS: BP 114/74
--- NOTE | 2019-01-29 14:15 | NUR ---
RECEIVED REPORT FROM ER NURSE. PATIENT IS AOX4. DENIES PAIN. ON RA. RESPIRATION ASYMMETRICAL AND UNLABORED. NO SIGNS OF DISTRESS NOTED. IV ON R AC 20G, CLEAN AND PATENT, INFUSING PER MD ORDER. SKIN INTACT AND DRY. CONTINENT. ABLE TO AMBULATE WITH STANDBY ASSISTANCE. ORIENTED PATIENT TO THE ROOM, USE THE CALL LIGHT, TV, LIGHT, BED REMOTE, AND BATHROOM. DISCUSSED PLAN OF CARE WITH PATIENT, AND PATIENT VERBALIZED UNDERSTANDING. VITAL SIGNS TAKEN. MRSA SWAP TAKEN. TELE MONITOR ATTACHED. CHANGED PATIENT INTO YELLOW GOWN, SOCKS, AND APPLIED YELLOW WRIST BANDS. FALL RISK PROTOCOL INITIALED. CONTACT PRECAUTION INITIALED. BED IN LOW POSITION. INSTRUCTED PATIENT TO USE THE CALL LIGHT FOR ASSISTANCE AND PATIENT WAS AWARE. CALL LIGHT WITHIN REACH.
--- NOTE | 2019-01-29 14:15 | NUR ---
Patient will be admitted to care of [facility]. Admited to TELE VIA GURNEY WITH VSS. Will go to room 115. Belongings list completed. Report to ARCENIO PLEITEZ.
[2019-01-29] MEDS: DEXT 5% / NACL 0.45% 1,000 ML IV SCH (14:59)
--- NOTE | 2019-01-29 15:01 | NUR ---
PATIENT STATED THAT SHE IS VERY HUNGRY AND WOULD LIKE TO EAT. CALLED [facility] FOR A TURKEY SANDWICH.
--- NOTE | 2019-01-29 15:10 | NUR ---
PATIENT IS EATING HER TURKEY SANDWICH. NO SIGNS OF DISTRESS NOTED.
[2019-01-29 16:00] VITALS: BP 117/73
--- NOTE | 2019-01-29 17:20 | NUR ---
PATIENT IS RESTING ON BED AT THIS TIME. NO SIGNS OF DISTRESS NOTED.
--- NOTE | 2019-01-29 19:20 | NUR ---
ENDORSED PATIENT AT BEDSIDE TO COLOR CONTROL OPERATOR NURSE FOR CONTINUITY OF CARE. PATIENT IS IN STABLE CONDITION.
--- NOTE | 2019-01-29 19:28 | NUR ---
RECEIVED PATIENT ON ROOM AIR, PULSE OX SAT 96%. PATIENT DENIES SOB. NO HHN GIVEN; HHN NOT INDICATED AT THIS TIME. NO RESPIRATORY DISTRESS NOTED. WILL CONTINUE TO MONITOR.
[2019-01-29] MEDS ORDERED: QUEtiapine FUMARATE 100 MG TAB PO SCH (21:00)
--- NOTE | 2019-01-29 21:09 | NUR ---
CALLED DR. ANDRES. MRSA SCREEN. PUT IN THE ORDER.
[2019-01-29] MEDS: hydrOXYzine PAMOATE 25 MG CAP PO SCH (21:10)
[2019-01-29] MEDS: METOPROLOL 25 MG TAB PO SCH (21:11)
--- NOTE | 2019-01-29 21:36 | NUR ---
[facility]SA PATIENT REFUSED EXPLAINED TO HER THE RISKS AND BENEFITS, PT STILL REFUSED. DR. JOHNSON AWARE Addendum: 01/29/19 at 2138 by Caroline Doe RN WRONG PATIENT-PLS DELETE NOTE
[2019-01-29 22:00] VITALS: BP 134/78
[2019-01-30] VITALS: BP 89/64
--- NOTE | 2019-01-30 | NUR ---
PT C/O OF CHEST PAIN 5-6 PAIN SCALE RADIATING TO THE BACK. WILL CALL RUBBER TILE FLOOR LAYER
[2019-01-30] MEDS ORDERED: MORPHINE SULFATE 4 MG/ML SYR IVP PRN (00:20)
--- NOTE | 2019-01-30 00:20 | NUR ---
TALKED TO DR. BRICE SHOE COVERER ORDERED FOR MORPHINE SULFATE. PT ALLERGIC TO CODEINE. BUT PER PT SHE HAD TAKEN MORPHINE BEFORE HAD NO ALLERGY RXNS. DR. BRICE AWARE. HE ALSO ORDERED FOR STAT EKG AND STAT TROP I
--- NOTE | 2019-01-30 00:51 | NUR ---
AGAIN ASKED PT IF SHE IS ALLERGIC CODEINE. SHE SAID SHE'S NOT SURE. BUT SHE HAS TAKEN TO MORPHINE SULFATE ALREADY IN THE PAST. PHARMACY CALLED TO ASK.
[2019-01-30] MEDS ORDERED: MORPHINE SULFATE 2 MG/ML SYR ONE (00:56)
[2019-01-30] MEDS ORDERED: MORPHINE SULFATE 2 MG/ML SYR IVP PRN (01:04)
--- NOTE | 2019-01-30 03:22 | NUR ---
DR. BRICE ORDERED FOR Q8 TROPONIN I X 2 MORE TAKES
--- NOTE | 2019-01-30 03:23 | NUR ---
CHECKED ON PATIENT SLEEPING, NO PAIN FELT VERBALIZED BY PATIENT. NO MORE COMPLAINTS AT THIS TIME. NO ALLERGIES AFTER ADM OF MORPHINE NOTED
[2019-01-30 04:00] VITALS: BP 97/62
[2019-01-30] MEDS: DEXT 5% / NACL 0.45% 1,000 ML IV SCH (04:53)
--- NOTE | 2019-01-30 06:46 | NUR ---
WILL ENDORSE TO NEXT SHIFT FOR CONTINUITY OF CARE. FOR MONITORING OF RECURRENCE OF CHEST PAIN.
[2019-01-30 07:10] LABS: BASOPHILS # (AUTO) 0.1 K/uL (0.00-0.22); BASOPHILS % (AUTO) 1.2 % (0.0-2.0); EOSINOPHILS # (AUTO) 0.4 K/uL (0-0.4); EOSINOPHILS % (AUTO) 6.4 % (0.0-4.0); HEMATOCRIT 36.9 % (36-48); HEMOGLOBIN 12.1 g/dL (12.0-16.0); LYMPHOCYTES # (AUTO) 2.1 K/uL (2.5-16.5); LYMPHOCYTES % (AUTO) 36.9 % (20.5-51.1); MEAN CORPUSCULAR HEMOGLOBIN 30 pg (27-31); MEAN CORPUSCULAR HGB CONC 33 g/dL (33-37); MONOCYTES # (AUTO) 0.6 K/uL (0.8-1.0); NEUTROPHILS # (AUTO) 2.5 K/uL (1.8-7.7); NEUTROPHILS % (AUTO) 45.5 % (42.2-75.2); PLATELET COUNT (AUTO) 221 K/uL (140-450); RED BLOOD CELL COUNT(AUTO) 3.97 MIL/uL (4.20-5.40); RED CELL DISTRIBUTION WIDTH 15.3 % (11.6-13.7); WHITE BLOOD COUNT (AUTO) 5.6 K/uL (4.8-10.8)
--- NOTE | 2019-01-30 07:15 | NUR ---
RECEIVED REPORT FROM [employer] DEVELOPER NURSE. PATIENT IS RESTING ON BED AND WATCHING TV AT THIS TIME. AOX4. DENIES PAIN. ON RA. RESPIRATION ASYMMETRICAL AND UNLABORED. NO SIGNS OF DISTRESS NOTED. IV ON R AC 20G, CLEAN AND PATENT, INFUSING PER MD ORDER. SKIN INTACT AND DRY. CONTINENT. BEDSIDE COMMODE AT BEDSIDE. ABLE TO AMBULATE WITH STANDBY ASSISTANCE. DISCUSSED PLAN OF CARE WITH PATIENT, AND PATIENT VERBALIZED UNDERSTANDING. TELE MONITOR ATTACHED. FALL RISK PROTOCOL INITIALED. CONTACT PRECAUTION INITIALED. BED IN LOW POSITION. INSTRUCTED PATIENT TO USE THE CALL LIGHT FOR ASSISTANCE AND PATIENT WAS AWARE. BED IN LOW POSITION, AND CALL LIGHT WITHIN REACH.
--- NOTE | 2019-01-30 07:57 | NUR ---
PATIENT HAS BEEN SCREENED AND CATEGORIZED MODERATE NUTRITION RISK. PATIENT WILL BE SEEN WITHIN 3-5 DAYS OF ADMISSION. 01/31/19-02/02/[address]
[2019-01-30 08:00] VITALS: BP 130/75
[2019-01-30] MEDS ORDERED: ENOXAPARIN 40 MG/0.4 ML SYR SUBQ SCH (09:00)
[2019-01-30] MEDS ORDERED: amLODIPine 5 MG TAB PO SCH (09:00)
[2019-01-30] MEDS ORDERED: BENZTROPINE 1 MG TAB PO SCH (09:00)
[2019-01-30] MEDS ORDERED: ASPIRIN 81 MG TAB.CHEW PO SCH (09:00)
[2019-01-30] MEDS ORDERED: ATORVASTATIN 20 MG TAB PO SCH (09:00)
[2019-01-30] MEDS ORDERED: FUROSEMIDE 20 MG TAB PO SCH (09:00)
[2019-01-30 09:16] LABS: ALBUMIN 3.1 g/dL (3.4-5.0); ANION GAP 15.9 (8-16); CARBON DIOXIDE 25.7 mmol/L (21-32); CREATININE 0.9 mg/dL (0.6-1.3); POTASSIUM 4.6 mmol/L (3.5-5.1); TOTAL BILIRUBIN 0.3 mg/dL (0.0-1.0)
[2019-01-30] MEDS: hydrOXYzine PAMOATE 25 MG CAP PO SCH (10:12)
[2019-01-30] MEDS: METOPROLOL 25 MG TAB PO SCH (10:13)
--- NOTE | 2019-01-30 10:14 | NUR ---
CHECKED BP PRIOR TO MED ADMINISTRATION, BP IS 115/66 AND PULSE 61[address] NOT[address] MIMS AND HE IS AWARE. PER DR, HOLD METOPROLOL AND NORVAC. PATIENT TOLERATED WELL. WATCHING TV ON BED. DENIES CHEST PAIN AND SOB. NO SIGNS OF DISTRESS.
--- NOTE | 2019-01-30 11:27 | NUR ---
PATIENT IS RESTING ON BED. DENIES PAIN AND SOB. NO SIGNS OF DISTRESS NOTED. SAFETY MEASURES IN PLACE.
[2019-01-30 12:00] VITALS: BP 110/63
--- NOTE | 2019-01-30 12:20 | NUR ---
CONTACTED [facility] [phone] AND INFORMED THAT PATIENT WILL BE DISCHARGE TODAY FROM HOSPITAL. SPOKE WITH JIM ROUSSEAU. PER JIM, THE ONLY TRANSPORT VEHICLE THEY HAVE WAS BROKEN DOWN AND THEY ARE NOT ABLE TO GET ANOTHER TRANSPORT VEHICLE TO [employer]AL MIXER PATIENT AT THIS TIME. INFORMED JIM THAT THE HOSPITAL WILL ARRANGE THE TRANSPORTATION WITH WHEELCHAIR FOR DISCHARGE AND THE BILL WILL BE SEND TO [facility]. JIM WAS AWARE AND ACKNOWLEDGED. CHARGE NURSE NOTIFIED AND WAS AWARE OF ABOVE INFORMATION.
--- NOTE | 2019-01-30 12:30 | NUR ---
CONTACTED PATIENT'S SON NATASHA AND NOTIFIED THAT PATIENT WILL BE DISCHARGED TODAY AND SHE IS GOING BACK TO [facility]. NATASHA ACKNOWLEDGED AND WAS WALLACE OF THIS EVENT.
--- NOTE | 2019-01-30 14:25 | NUR ---
PATIENT IS RESTING ON BED. WAITING FOR TRANSPORTATION TO BE ARRIVED. DENIES PAIN AND SOB. NO SIGNS OF DISTRESS NOTED.
--- NOTE | 2019-01-30 15:15 | NUR ---
DISCHARGE INSTRUCTION PROVIDED TO PATIENT AT BEDSIDE. EDUCATED PATIENT ON DISEASE MANAGEMENT, SIGNS AND SYMPTOMS, FOLLOW UP WITH PCP, MEDICATION REGIMENS, MEDICATION SIDE EFFECTS, AND DIET REGIMENS. PATIENT VERBALIZED UNDERSTANDING. D/C IV AND IV CANNULA INTACT, NO BLEEDING AT INSERT SITE. REMOVED ALL ARMBANDS. PATIENT TOOK ALL HER BELONGINGS. PATIENT TRANSFERRED INTO [facility]. PATIENT IS IN STABLE CONDITION. PATIENT IS DISCHARGE AT THIS TIME.
--- NOTE | 2019-01-30 18:45 | NUR ---
DISCHARGE DOCUMENTS HAS PREPARED. PATIENT IS CHANGING INTO HER OWN CLOTHES. Addendum: 01/30/19 at 1847 by Faiza Waters RN [facility] TIME, 0714
--- NOTE | 2019-02-01 10:59 | NUR ---
CALLED DR. KATY MELENDREZ'S OFFICE AND MADE A FOLLOW UP APPOINTMENT WITH HIM FOR MONDAY, FEBRUARY 05 AT 10:30A.M. AD[address]ESS [id number] ESCOBAR GOMEZ ALBION PHONE [phone]. I CALLED [facility]S PHONE AND SPOKE WITH ELTON. THE PATIENT LIVES AT [facility]. I GAVE THE INFORMATION TO ELTON AND SHE WILL TELL DEXTER AND MAKE SURE SHE GOES TO THE APPOINTMENT.
== END 2019-01-30 15:15 | disposition home or self-care (01) | DRG 204 ==
LOC: MED 08:42 → MTU 13:45
PROVIDERS: ADMIT Internal Medicine; ATTEND Internal Medicine
DX: R55 Syncope and collapse (principal); I11.0 Hypertensive heart disease with heart failure; I50.9 Heart failure, unspecified; F20.9 Schizophrenia, unspecified; N39.0 Urinary tract infection, site not specified; R09.89 Other specified symptoms and signs involving the circulatory and respiratory systems; I25.10 Atherosclerotic heart disease of native coronary artery without angina pectoris; E66.9 Obesity, unspecified; E78.5 Hyperlipidemia, unspecified; Z88.5 Allergy status to narcotic agent; Z79.82 Long term (current) use of aspirin; Z88.2 Allergy status to sulfonamides; Z79.899 Other long term (current) drug therapy; Z86.73 Personal history of transient ischemic attack (TIA), and cerebral infarction without residual deficits; I25.2 Old myocardial infarction; Z90.710 Acquired absence of both cervix and uterus; Z82.49 Family history of ischemic heart disease and other diseases of the circulatory system; Z87.891 Personal history of nicotine dependence; Z95.5 Presence of coronary angioplasty implant and graft; Z68.39 Body mass index [BMI] 39.0-39.9, adult
CPT/HCPCS: 36415; 36600; 70450; 71045; 80053; 81001; 82550; 82553; 82803; 82948; 83605; 83735; 83880; 84484; 85025; 85379; 85610; 85730; 87040; 87081; 87086; 93005; 99285; G0482; J1650; J2270; J2405; Q0177

== ENCOUNTER 2019-12-15 16:19 | Inpatient (IN) | payer OTHER ==
[~2019-12-15] VITALS: Ht 162.6 cm; Wt 81.6 kg
[~2019-12-15 16:19] MED LIST changes: +VOL25 PO
[2019-12-15 16:25] VITALS: BP 117/68
--- NOTE | 2019-12-15 16:27 | NUR ---
PT BIBA TO BED 10
--- NOTE | 2019-12-15 16:30 | NUR ---
BIBA C/O ABDOMINAL PAIN WITH DIARRHEA X 1 WEEK. DENIES CP, FEVER, OR N/V. PATIENT STATES PAIN OF 8/10 AT THIS TIME; VSS; PATIENT POSITIONED FOR COMFORT; HOB ELEVATED; BEDRAILS UP X2; BED DOWN. ER MD MADE AWARE OF PT STATUS. PT IS ON MONITOR.
[2019-12-15] MEDS ORDERED: NACL 0.9% 2,000 ML IV SCH (16:39)
[2019-12-15] MEDS ORDERED: DIPHENOXYLATE /ATROPINE 2.5 MG TAB PO ONE (16:40)
[2019-12-15] MEDS ORDERED: FAMOTIDINE 20 MG/2 ML VIAL IVP ONE (16:40)
[2019-12-15] MEDS ORDERED: ONDANSETRON 4 MG/2 ML VIAL IVP ONE (16:40)
--- NOTE | 2019-12-15 17:03 | NUR ---
FSP HOTLINE GIVEN BY [facility] SERVICE STATION ATTENDANT FOR ANY ISSUES
--- NOTE | 2019-12-15 17:20 | NUR ---
PT URINATED AT BEDSIDE. URINE OUTPUT 20ML.
[2019-12-15 17:33] LABS: BASOPHILS # (AUTO) 0.1 K/uL (0.00-0.22); BASOPHILS % (AUTO) 1.4 % (0.0-2.0); EOSINOPHILS # (AUTO) 0.3 K/uL (0-0.4); EOSINOPHILS % (AUTO) 4.3 % (0.0-4.0); HEMATOCRIT 42.2 % (36-48); HEMOGLOBIN 13.9 g/dL (12.0-16.0); LYMPHOCYTES # (AUTO) 2.8 K/uL (2.5-16.5); LYMPHOCYTES % (AUTO) 35.9 % (20.5-51.1); MEAN CORPUSCULAR HEMOGLOBIN 30 pg (27-31); MEAN CORPUSCULAR HGB CONC 33 g/dL (33-37); MEAN CORPUSCULAR VOLUME 91.8 fL (80-94); MONOCYTES # (AUTO) 0.7 K/uL (0.8-1.0); MONOCYTES % (AUTO) 9.1 % (1.7-9.3); NEUTROPHILS # (AUTO) 3.8 K/uL (1.8-7.7); NEUTROPHILS % (AUTO) 49.3 % (42.2-75.2); PLATELET COUNT (AUTO) 259 K/uL (140-450); RED CELL DISTRIBUTION WIDTH 14.4 % (11.6-13.7); WHITE BLOOD COUNT (AUTO) 7.7 K/uL (4.8-10.8)
[2019-12-15 17:36] LABS: APPEARANCE,URINE SL CLOUDY (CLEAR); BILIRUBIN,URINE NEGATIVE (NEGATIVE); BLOOD, URINE NEGATIVE (NEGATIVE); COLOR,URINE YELLOW (YELLOW); LEUKOCYTE ESTERASE ,URINE 1+ (NEGATIVE); NITRITE, URINE NEGATIVE (NEGATIVE); PH,URINE 5.5 (5.0-9.0); UGLUCOSE NEGATIVE (NEGATIVE)
[2019-12-15 17:45] LABS: ALBUMIN 3.6 g/dL (3.4-5.0); ANION GAP 13.9 (8-16); CARBON DIOXIDE 28.8 mmol/L (21-32); POTASSIUM 3.7 mmol/L (3.5-5.1); TOTAL BILIRUBIN 0.4 mg/dL (0.0-1.0)
--- NOTE | 2019-12-15 18:30 | NUR ---
PT IS RESTING IN BED WITH EYES OPENED. VSS. PT IS ON MINOTOR.
[2019-12-15] MEDS ORDERED: ACETAMINOPHEN 325 MG TAB PO PRN (18:55)
[2019-12-15] MEDS ORDERED: ONDANSETRON 4 MG/2 ML VIAL IVP PRN (18:55)
[2019-12-15] MEDS ORDERED: HYDROcodone/APAP 5/325 MG 1 TAB TAB PO PRN (18:55)
--- NOTE | 2019-12-15 19:08 | NUR ---
Pt report given to MAIK An. Transfer of care at this time.
--- NOTE | 2019-12-15 19:11 | NUR ---
RECIVED REPORT FROM MAIK HAWTHORNE. WILL CONT CARE AT THIS TIME.
[2019-12-15] MEDS ORDERED: METF1000 PO (19:25)
[2019-12-15] MEDS ORDERED: CLOP75TA55 PO (19:25)
[2019-12-15] MEDS ORDERED: ESCI5TAB PO (19:25)
[2019-12-15 19:40] VITALS: BP 116/71
--- NOTE | 2019-12-15 19:45 | NUR ---
RECEIVED BEDSIDE REPORT FROM ROSALEE CORDOVA RN. PT IS AAOX4. RESPIRATIONS ARE EQUAL AND UNLABORED IN ROOM AIR. LUNG SOUNDS ARE CLEAR. SKIN IS INTACT. C/C DIARRHEA X2 WEEKS NO BM SINCE BEING IN HOSPITAL. DX DEHYDRATION. IV ON LAC 20G BOLUS INFUSING WELL. POC DISCUSSED WITH PT. NEED COLLECT STOOL PT VERBALIZED UNDERSTANDING. MRSA COLLECTED AND SENT TO LAB. VSS. ORIENTED PT TO ROOM, STAFF, CALL LIGHT AND VISITING HOURS. PT PLACED ON FALL PRECAUTION D/T L SIDE WEAKNESS. WITH FACIAL DROOP AND SLUR. CALL LIGHT IS WITHIN REACH. WILL CONTINUE TO MONITOR.
--- NOTE | 2019-12-15 19:45 | NUR ---
Patient will be admitted to care of DR. TEJADA. Admited to M/S. Will go to room 124B. Belongings list completed. Report to MAIK GUERRERO.
--- NOTE | 2019-12-15 19:45 | NUR ---
Note becki in EDM - 12/15/19 at 1951 by KASI Patient will be admitted to care of MALLORY. Admited to M/S. Will go to [id number]. Belongings list completed. Report to MAIK GUERRERO.
[2019-12-15] MEDS: METOPROLOL 25 MG TAB PO SCH (21:00)
[2019-12-15] MEDS ORDERED: NON-FORMULARY ITEM (Ranitidine HCl 150 MG) PO SCH (21:00)
[2019-12-15] MEDS ORDERED: BENZTROPINE 1 MG TAB PO SCH (21:00)
[2019-12-15] MEDS ORDERED: QUEtiapine FUMARATE 100 MG TAB PO SCH (21:00)
[2019-12-15] MEDS: NACL 0.9% 1,000 ML IV SCH (21:28)
[2019-12-15] MEDS: FAMOTIDINE 20 MG TAB PO SCH (21:35)
[2019-12-15] MEDS: metroNIDAZOLE 500 MG/NS PREMIX 100 ML IV SCH (21:35)
--- NOTE | 2019-12-15 21:35 | NUR ---
VSS: 116/71 HR 52 99%RA RR 16 97.6. HELD HERBERT LOPRESSOR D/T HR. HERBERT MEDS GIVEN PT TOLERATED WELL. COLLECTED HOME MEDS AND SENT TO LAB. ALL NEEDS MET. CALL LIGHT IS WITHIN REACH.
--- NOTE | 2019-12-15 22:30 | NUR ---
PATIENT IS LAYING COMFORTABLY IN BED WITH EYES CLOSED. CHEST RISE AND FALL. ALL SAFETY MEASURES ARE IN PLACE. CALL LIGHT IS WITHIN REACH. WILL CONTINUE TO MONITOR.
[2019-12-16] VITALS: BP 107/60
--- NOTE | 2019-12-16 | NUR ---
VITAL SIGNS ARE WITHIN NORMAL LIMITS. DENIES PAIN. ALL SAFETY MEASURES ARE IN PLACE. CALL LIGHT IS WITHIN REACH. WILL CONTINUE TO MONITOR.
--- NOTE | 2019-12-16 01:58 | NUR ---
PT IS SLEEPING COMFORTABLY IN BED. CHEST RISE AND FALL. SAFETY MEASURES ARE IN PLACE. CALL LIGHT IS WITHIN REACH.
--- NOTE | 2019-12-16 04:04 | NUR ---
PATIENT LAYING COMFORTABLY IN BED WITH EYES CLOSED. CHEST RISE AND FALL NOTED. CALL LIGHT IS WITHIN REACH.
[2019-12-16] MEDS: metroNIDAZOLE 500 MG/NS PREMIX 100 ML IV SCH ×2 (04:38→13:18)
--- NOTE | 2019-12-16 04:38 | NUR ---
FLAGYL NOW INFUSING PER ORDERS. ALL SAFETY MEASURES ARE IN PLACE. CALL LIGHT IS WITHIN REACH.
--- NOTE | 2019-12-16 06:49 | NUR ---
PT IS ASLEEP. CHEST RISE AND FALL NOTED. IVF INFUSING PER ORDERS. SAFETY MEASURES IN PLACE. PT WITH NO BM DURING SHIFT. WILL ENDORSE TO DAY SHIFT TO COLLECT STOOL. PT IS STABLE. WILL ENDORSE TO DAY RN.
[2019-12-16 06:53] LABS: BASOPHILS # (AUTO) 0.1 K/uL (0.00-0.22); EOSINOPHILS # (AUTO) 0.3 K/uL (0-0.4); EOSINOPHILS % (AUTO) 4.7 % (0.0-4.0); HEMATOCRIT 36.9 % (36-48); HEMOGLOBIN 12.1 g/dL (12.0-16.0); LYMPHOCYTES # (AUTO) 3.1 K/uL (2.5-16.5); LYMPHOCYTES % (AUTO) 46.4 % (20.5-51.1); MEAN CORPUSCULAR HEMOGLOBIN 30 pg (27-31); MEAN CORPUSCULAR HGB CONC 33 g/dL (33-37); MEAN CORPUSCULAR VOLUME 92.3 fL (80-94); MONOCYTES # (AUTO) 0.8 K/uL (0.8-1.0); MONOCYTES % (AUTO) 11.8 % (1.7-9.3); NEUTROPHILS # (AUTO) 2.4 K/uL (1.8-7.7); NEUTROPHILS % (AUTO) 36.1 % (42.2-75.2); PLATELET COUNT (AUTO) 205 K/uL (140-450); RED BLOOD CELL COUNT(AUTO) 3.99 MIL/uL (4.20-5.40); RED CELL DISTRIBUTION WIDTH 14.5 % (11.6-13.7); WHITE BLOOD COUNT (AUTO) 6.7 K/uL (4.8-10.8)
--- NOTE | 2019-12-16 07:20 | NUR ---
RECEIVED REPORT FROM NIGHT NURSE. PATIENT IN STABLE CONDITION. AAOX4. NO S/S OF DISTRESS NOTED. INTRODUCED SELF. IV INTACT AND PATENT TO LEFT AC WITH IVF NS 80ML/HR. BED IN LOW POSITION. CALL LIGHT WITHIN REACH.
[2019-12-16 07:45] LABS: ANION GAP 11.5 (8-16); CREATININE 0.9 mg/dL (0.6-1.3); MAGNESIUM 1.1 mg/dL (1.8-2.4); PHOSPHORUS 3.7 mg/dL (2.5-4.9); POTASSIUM 3.5 mmol/L (3.5-5.1)
[2019-12-16 08:00] VITALS: BP 126/68
[2019-12-16] MEDS: MORPHINE SULFATE 4 MG/ML SYR IVP PRN ×2 (08:35→13:18)
[2019-12-16] MEDS: FAMOTIDINE 20 MG TAB PO SCH (08:36)
--- NOTE | 2019-12-16 08:40 | NUR ---
AM MEDICATIONS GIVEN ORDERED. PATIENT C/O ABDOMINAL PAIN, MORPHINE 4MG IVP GIVEN ORDERED. PT AT BEDSIDE. PATIENT AMBULATED WITH WALKER FROM THE BED TO THE ROOM DOOR. TOLERATED WELL. PATIENT STATED SHE HAS NOT HAVE ANY BOWEL MOVEMENT SINCE SHE ARRIVED IN THE UNIT. PATIENT STABLE. CALL LIGHT WITHIN REACH.
[2019-12-16] MEDS: METOPROLOL 25 MG TAB PO SCH (08:48)
[2019-12-16] MEDS ORDERED: ECOTRIN 81 MG TABEC PO SCH (09:00)
[2019-12-16] MEDS ORDERED: ATORVASTATIN 20 MG TAB PO SCH (09:00)
[2019-12-16] MEDS ORDERED: busPIRone 5 MG TAB PO SCH (09:00)
[2019-12-16] MEDS: NACL 0.9% 1,000 ML IV SCH ×2 (09:30→13:37)
--- NOTE | 2019-12-16 10:31 | NUR ---
PATIENT HAS BEEN SCREENED AND CATEGORIZED HIGH NUTRITION RISK. PATIENT WILL BE SEEN WITHIN 1-2 DAYS OF ADMISSION. 05/15/19-05/16/[address]
--- NOTE | 2019-12-16 11:15 | NUR ---
A ALMOND CUTTING MACHINE TENDER OUTER DIAMETER GRINDER HUNG AT BEDSIDE FOR PATIENT. PATIENT IS AA0X4. NO S/S OF DISTRESS NOTED.
--- NOTE | 2019-12-16 13:20 | NUR ---
PATIENT AAOX4. MEDICATED FOR ABDOMINAL PAIN WITH MORPHINE 4MG IVP ORDERED FOR SEVERE PAIN. PATIENT ABLE TO MAKE NEEDS NEEDS KNOWN. CALL LIGHT WITHIN REACH.
--- NOTE | 2019-12-16 13:50 | NUR ---
NOTIFIED DR. AMES OF PATIENT'S MG LEVEL 1.1. RECEIVED ORDER TO GIVE MAG OXIDE 800MG PO X1 TODAY.
[2019-12-16] MEDS ORDERED: MAGNESIUM OXIDE 400 MG TAB PO SCH (13:53)
[2019-12-16] MEDS ORDERED: CIPR500T4 PO (13:58)
[2019-12-16] MEDS ORDERED: METR250T2 PO (13:58)
--- NOTE | 2019-12-16 15:30 | NUR ---
PATIENT IS IN STABLE CONDITION. PATIENT PROVIDED WITH DISCHARGE INSTRUCTIONS PACKET AND PRESCRIPTION. ALL BELONGINGS AND MEDICATIONS RETURNED TO PATIENT. IV REMOVED, IV BAND REMOVED. PATIENT IS DISCHARGED TO AN INDEPENDENT LIVING [facility], TRANSPORTED VIA PRIVATE VEHICLE ACCOMPANIED BY DESIREE Langston CAREGIVER. PATIENT TRANSPORTED TO THE VEHICLE VIA W/C AND AMBULATED INTO THE CAR.
== END 2019-12-16 15:30 | disposition home or self-care (01) | DRG 249 ==
LOC: MED 16:19 → MTU 18:57
PROVIDERS: ADMIT Hospitalist; ATTEND Hospitalist
DX: E86.0 Dehydration (principal); K52.9 Noninfective gastroenteritis and colitis, unspecified; E87.2 Acidosis; E83.42 Hypomagnesemia; E11.9 Type 2 diabetes mellitus without complications; E78.5 Hyperlipidemia, unspecified; I10 Essential (primary) hypertension; F41.8 Other specified anxiety disorders; K21.9 Gastro-esophageal reflux disease without esophagitis; M19.90 Unspecified osteoarthritis, unspecified site; I25.10 Atherosclerotic heart disease of native coronary artery without angina pectoris; I25.2 Old myocardial infarction; Z85.43 Personal history of malignant neoplasm of ovary; Z86.73 Personal history of transient ischemic attack (TIA), and cerebral infarction without residual deficits; Z87.891 Personal history of nicotine dependence; Z90.710 Acquired absence of both cervix and uterus; Z95.5 Presence of coronary angioplasty implant and graft; Z88.5 Allergy status to narcotic agent; Z88.2 Allergy status to sulfonamides; Z79.82 Long term (current) use of aspirin; Z79.899 Other long term (current) drug therapy
CPT/HCPCS: 36415; 71045; 80048; 80053; 81001; 83605; 83735; 84100; 84484; 85025; 87040; 87086; 93005; 96361; 96374; 96375; 97112; 97116; 97161-GP; 99285; J2270; J2405; J3490; J7030; Q0092

== ENCOUNTER 2021-04-29 22:03 | Emergency (ER) | payer MEDICARE, OTHER ==
[~2021-04-29] VITALS: Ht 160 cm; Wt 72.1 kg
[~2021-04-29 22:03] MED LIST changes: -AMLO10TA PO; -ASPI81EC98 PO; -BUS5 PO; +CIPR500T4 PO; +CLOP75TA55 PO; +ESCI5TAB PO; -HYDR25CA1 PO; -IBUP-2213 PO; +METF1000 PO; +METR-520 PO; -QUET300T1 PO; -RANI15SY PO; -VOL25 PO
[2021-04-29 22:09] VITALS: BP 135/68
[2021-04-29] MEDS ORDERED: NACL 0.9% 1,000 ML IV ONE (22:15)
--- NOTE | 2021-04-29 22:35 | NUR ---
65 YO F BIBA FROM HOME. PER PT C/O DIZZINESS, HEADACHE, BLURRED VISION X 3 DAYS. PT HAS PRIOR HX OF CVA WITH LEFT SIDED WEAKNESS. PT AAOX4 FOLLOWING COMMANDS. PT DENIES NVD. HIREN LOCKED IN LOWEST POSITION WILL CONTINUE TO OBSERVE MEDHX: CHF, DM, HTN, STROKE AX: CODEINE
[2021-04-29 22:38] LABS: BASOPHILS # (AUTO) 0.1 K/uL (0.00-0.22); BASOPHILS % (AUTO) 1.4 % (0.0-2.0); EOSINOPHILS # (AUTO) 0.3 K/uL (0-0.4); EOSINOPHILS % (AUTO) 4.3 % (0.0-4.0); HEMATOCRIT 39.9 % (36-48); HEMOGLOBIN 13.1 g/dL (12.0-16.0); LYMPHOCYTES % (AUTO) 28.3 % (20.5-51.1); MEAN CORPUSCULAR HEMOGLOBIN 30 pg (27-31); MEAN CORPUSCULAR HGB CONC 33 g/dL (33-37); MONOCYTES # (AUTO) 0.7 K/uL (0.8-1.0); MONOCYTES % (AUTO) 9.8 % (1.7-9.3); NEUTROPHILS % (AUTO) 56.2 % (42.2-75.2); PLATELET COUNT (AUTO) 281 K/uL (140-450); RED BLOOD CELL COUNT(AUTO) 4.34 MIL/uL (4.20-5.40); RED CELL DISTRIBUTION WIDTH 15.2 % (11.6-13.7); WHITE BLOOD COUNT (AUTO) 7.2 K/uL (4.8-10.8)
[2021-04-29 22:54] LABS: ALBUMIN 3.3 g/dL (3.4-5.0); ANION GAP 13.9 (8-16); ASPARTATE AMINOTRANSFERASE 18 U/L (15-37); CARBON DIOXIDE 25.2 mmol/L (21-32); CHLORIDE 108 mmol/L (98-107); CREATININE 1.1 mg/dL (0.6-1.3); GFR ARICAN-AMERICAN 64 mL/min (>90); GLUCOSE 110 mg/dL (74-106); POTASSIUM 4.1 mmol/L (3.5-5.1); SODIUM SERUM 143 mmol/L (136-145); TOTAL BILIRUBIN 0.2 mg/dL (0.0-1.0); UREA NITROGEN, BLOOD 27 mg/dL (7-18)
[2021-04-30 01:47] VITALS: BP 135/68
--- NOTE | 2021-04-30 01:49 | NUR ---
Patient discharged with v/s stable. Written and verbal after care instructions given and explained. Patient verbalized understanding. Ambulatory with steady gait. All questions addressed prior to discharge. Advised to follow up with PMD. [employer] voucher given. pt sent to lobby.
--- NOTE | 2021-04-30 18:54 | NUR ---
LATE ENTRY- 0.9% NS BOLUS DISCONTINED AT 2315
[2021-05-01] MEDS ORDERED: CEPH-588 PO (22:54)
== END 2021-04-30 01:45 | disposition home or self-care (01) ==
LOC: MED 22:03
DX: R55 Syncope and collapse (principal); R42 Dizziness and giddiness; E11.9 Type 2 diabetes mellitus without complications; K21.9 Gastro-esophageal reflux disease without esophagitis; I10 Essential (primary) hypertension; I25.2 Old myocardial infarction; Z86.73 Personal history of transient ischemic attack (TIA), and cerebral infarction without residual deficits; Z79.899 Other long term (current) drug therapy; Z88.5 Allergy status to narcotic agent; Z79.84 Long term (current) use of oral hypoglycemic drugs
CPT/HCPCS: 36415; 80053; 84484; 85025; 93005; 96360; 99284; G0482; J7030

== ENCOUNTER 2021-05-01 18:56 | Emergency (ER) | payer MEDICARE, OTHER ==
[~2021-05-01] VITALS: Ht 160 cm; Wt 99.3 kg
[2021-05-01 18:57] VITALS: BP 129/73
[2021-05-01] MEDS ORDERED: NACL 0.9% 1,000 ML IV ONE (19:05)
[2021-05-01 19:25] LABS: BASOPHILS # (AUTO) 0.1 K/uL (0.00-0.22); BASOPHILS % (AUTO) 1.9 % (0.0-2.0); EOSINOPHILS # (AUTO) 0.2 K/uL (0-0.4); HEMOGLOBIN 12.9 g/dL (12.0-16.0); LYMPHOCYTES # (AUTO) 1.8 K/uL (2.5-16.5); LYMPHOCYTES % (AUTO) 23.1 % (20.5-51.1); MEAN CORPUSCULAR HEMOGLOBIN 30 pg (27-31); MEAN CORPUSCULAR HGB CONC 32 g/dL (33-37); MEAN CORPUSCULAR VOLUME 91.6 fL (80-94); MONOCYTES # (AUTO) 0.5 K/uL (0.8-1.0); MONOCYTES % (AUTO) 6.8 % (1.7-9.3); NEUTROPHILS # (AUTO) 5.2 K/uL (1.8-7.7); NEUTROPHILS % (AUTO) 66.2 % (42.2-75.2); PLATELET COUNT (AUTO) 260 K/uL (140-450); RED BLOOD CELL COUNT(AUTO) 4.37 MIL/uL (4.20-5.40); RED CELL DISTRIBUTION WIDTH 15.2 % (11.6-13.7); WHITE BLOOD COUNT (AUTO) 7.9 K/uL (4.8-10.8)
[2021-05-01 19:37] LABS: ALBUMIN 3.4 g/dL (3.4-5.0); ANION GAP 17.5 (8-16); CARBON DIOXIDE 22.5 mmol/L (21-32); CREATININE 1.1 mg/dL (0.6-1.3); TOTAL BILIRUBIN 0.3 mg/dL (0.0-1.0)
[2021-05-01 22:34] LABS: APPEARANCE,URINE SL CLOUDY (CLEAR); BILIRUBIN,URINE NEGATIVE (NEGATIVE); BLOOD, URINE 2+ (NEGATIVE); COLOR,URINE YELLOW (YELLOW); LEUKOCYTE ESTERASE ,URINE TRACE (NEGATIVE); NITRITE, URINE NEGATIVE (NEGATIVE); UGLUCOSE NEGATIVE (NEGATIVE)
[2021-05-01 22:40] LABS: RBC,URINE 0-5 /HPF (0-5); WBC,URINE 0-5 /HPF (0-5)
[2021-05-01] MEDS ORDERED: CEPH-588 PO (22:54)
[2021-05-01 23:05] VITALS: BP 113/56
== END 2021-05-01 23:05 | disposition home or self-care (01) ==
LOC: MED 18:56
DX: N39.0 Urinary tract infection, site not specified (principal); R53.1 Weakness; E11.9 Type 2 diabetes mellitus without complications; K21.9 Gastro-esophageal reflux disease without esophagitis; I10 Essential (primary) hypertension; I25.2 Old myocardial infarction; Z86.73 Personal history of transient ischemic attack (TIA), and cerebral infarction without residual deficits; Z79.84 Long term (current) use of oral hypoglycemic drugs; Z79.899 Other long term (current) drug therapy; Z88.2 Allergy status to sulfonamides; Z88.5 Allergy status to narcotic agent; Z98.890 Other specified postprocedural states
CPT/HCPCS: 36415; 71045; 80053; 81001; 83690; 84484; 85025; 87086; 93005; 96360; 99285; J7030

== ENCOUNTER 2021-11-14 12:48 | Emergency (ER) | payer MEDICARE, OTHER ==
[~2021-11-14] VITALS: Ht 165.1 cm; Wt 92.5 kg
[~2021-11-14 12:48] MED LIST changes: +CEPH-588 PO
[2021-11-14 12:54] VITALS: BP 140/81
[2021-11-14 15:19] LABS: BASOPHILS # (AUTO) 0.1 K/uL (0.00-0.22); EOSINOPHILS # (AUTO) 0.2 K/uL (0-0.4); EOSINOPHILS % (AUTO) 2.3 % (0.0-4.0); HEMATOCRIT 41.6 % (36-48); HEMOGLOBIN 14.1 g/dL (12.0-16.0); LYMPHOCYTES # (AUTO) 1.6 K/uL (2.5-16.5); MEAN CORPUSCULAR HEMOGLOBIN 30 pg (27-31); MEAN CORPUSCULAR HGB CONC 34 g/dL (33-37); MEAN CORPUSCULAR VOLUME 88.9 fL (80-94); MONOCYTES # (AUTO) 0.6 K/uL (0.8-1.0); MONOCYTES % (AUTO) 7.1 % (1.7-9.3); NEUTROPHILS # (AUTO) 5.6 K/uL (1.8-7.7); NEUTROPHILS % (AUTO) 69.6 % (42.2-75.2); PLATELET COUNT (AUTO) 275 K/uL (140-450); RED BLOOD CELL COUNT(AUTO) 4.68 MIL/uL (4.20-5.40); RED CELL DISTRIBUTION WIDTH 14.9 % (11.6-13.7); WHITE BLOOD COUNT (AUTO) 8.1 K/uL (4.8-10.8)
[2021-11-14 15:23] LABS: APPEARANCE,URINE CLEAR (CLEAR); BLOOD, URINE NEGATIVE (NEGATIVE); COLOR,URINE YELLOW (YELLOW); LEUKOCYTE ESTERASE ,URINE NEGATIVE (NEGATIVE); NITRITE, URINE NEGATIVE (NEGATIVE); UGLUCOSE NEGATIVE (NEGATIVE)
[2021-11-14 15:40] LABS: BILIRUBIN,URINE 1+ (NEGATIVE)
[2021-11-14 15:43] LABS: ALBUMIN 3.5 g/dL (3.4-5.0); ANION GAP 13.7 (8-16); CARBON DIOXIDE 25.3 mmol/L (21-32); TOTAL BILIRUBIN 0.4 mg/dL (0.0-1.0)
[2021-11-14] MEDS: KETOROLAC 30 MG/ML VIAL IM ONE (17:35)
[2021-11-14] MEDS ORDERED: NAPR-54 PO (19:09)
[2021-11-14] MEDS ORDERED: KETOROLAC 30 MG/ML VIAL ONE (19:28)
[2021-11-14 19:40] VITALS: BP 148/82
== END 2021-11-14 19:40 | disposition home or self-care (01) ==
LOC: MED 12:48
DX: R07.89 Other chest pain (principal); M79.10 Myalgia, unspecified site; E11.9 Type 2 diabetes mellitus without complications; K21.9 Gastro-esophageal reflux disease without esophagitis; I11.0 Hypertensive heart disease with heart failure; Z88.2 Allergy status to sulfonamides; Z88.5 Allergy status to narcotic agent; Z20.822 Contact with and (suspected) exposure to COVID-19
CPT/HCPCS: 36415; 71045; 80053; 81003; 83690; 84484; 85025; 87426; 93005; 96372; 99285; J1885

== ENCOUNTER 2022-08-15 14:49 | Emergency (ER) | payer MEDICARE, OTHER ==
[~2022-08-15] VITALS: Ht 160 cm; Wt 118.0 kg
[~2022-08-15 14:49] MED LIST changes: -CEPH-588 PO; -CIPR500T4 PO; +METF-346 PO; -METF1000 PO; -METR-520 PO; +NAPR-54 PO
[2022-08-15 14:56] VITALS: BP 148/99
--- NOTE | 2022-08-15 14:59 | NUR ---
PT TO [facility]UTSCH
--- NOTE | 2022-08-15 15:00 | NUR ---
BIB FAMILY C/O 510 BODY PAIN WITH COUGH X AM
--- NOTE | 2022-08-15 17:50 | NUR ---
CALLED PT FOR SWAB. NO SHOW.
[2022-08-15 18:50] VITALS: BP 148/99
--- NOTE | 2022-08-15 18:50 | NUR ---
PATIENT ELOPED FROM FACILITY. DISCHARGE INSTRUCTIONS NOT GIVEN TO PATIENT. . DR LINARES NOTIFIED.
== END 2022-08-15 18:50 | disposition home or self-care (01) ==
LOC: MED 14:49
DX: R05.9 Cough, unspecified (principal); I50.9 Heart failure, unspecified; E11.9 Type 2 diabetes mellitus without complications; Z79.4 Long term (current) use of insulin; Z79.899 Other long term (current) drug therapy
CPT/HCPCS: 71046; 99283

== ENCOUNTER 2023-01-31 15:37 | Emergency (ER) | payer MEDICARE, OTHER ==
[~2023-01-31] VITALS: Ht 160 cm; Wt 132.4 kg
[~2023-01-31 15:37] MED LIST changes: -BENZ1TAB PO; +[UNRECOGNIZED DRUG - CODE] PO
[2023-01-31 16:06] VITALS: BP 133/78
[2023-01-31] MEDS ORDERED: KETOROLAC 30 MG/ML VIAL IM ONE (18:30)
[2023-01-31] MEDS ORDERED: LIDOCAINE 5% 1 EA PATCH TP ONE (18:30)
[2023-01-31 18:42] LABS: BASOPHILS # (AUTO) 0.1 K/uL (0.00-0.22); BASOPHILS % (AUTO) 1.2 % (0.0-2.0); EOSINOPHILS # (AUTO) 0.3 K/uL (0-0.4); EOSINOPHILS % (AUTO) 3.4 % (0.0-4.0); HEMATOCRIT 40.8 % (36-48); HEMOGLOBIN 13.5 g/dL (12.0-16.0); LYMPHOCYTES # (AUTO) 2.6 K/uL (2.5-16.5); LYMPHOCYTES % (AUTO) 32.4 % (20.5-51.1); MEAN CORPUSCULAR HEMOGLOBIN 30 pg (27-31); MEAN CORPUSCULAR HGB CONC 33 g/dL (33-37); MEAN CORPUSCULAR VOLUME 91.4 fL (80-94); MONOCYTES # (AUTO) 0.8 K/uL (0.8-1.0); MONOCYTES % (AUTO) 9.4 % (1.7-9.3); NEUTROPHILS # (AUTO) 4.4 K/uL (1.8-7.7); NEUTROPHILS % (AUTO) 53.6 % (42.2-75.2); PLATELET COUNT (AUTO) 224 K/uL (140-450); RED BLOOD CELL COUNT(AUTO) 4.47 MIL/uL (4.20-5.40); RED CELL DISTRIBUTION WIDTH 14.5 % (11.6-13.7); WHITE BLOOD COUNT (AUTO) 8.2 K/uL (4.8-10.8)
[2023-01-31 19:11] LABS: ALBUMIN 3.7 g/dL (3.4-5.0); ANION GAP 13.6 (8-16); CARBON DIOXIDE 26.3 mmol/L (21-32); CREATININE 0.9 mg/dL (0.6-1.3); POTASSIUM 3.9 mmol/L (3.5-5.1); TOTAL BILIRUBIN 0.5 mg/dL (0.0-1.0)
[2023-01-31] MEDS ORDERED: AZIT250T3 PO (21:00)
[2023-01-31] MEDS ORDERED: AZITHROMYCIN 250 MG TAB PO ONE (21:00)
[2023-01-31] MEDS ORDERED: DOXYCYCLINE 100 MG CAP PO SCH (21:00)
[2023-01-31] MEDS ORDERED: DOXY-690 PO (21:00)
--- NOTE | 2023-01-31 21:30 | NUR ---
UBER SET UP WITH HOUSE SUPERVISIOR, PT STATES SHE IS ABLE TO ENTER AND EXIT UBER WITHOUT ASSISTANCE, STATES HER APARTMENT IS LOCATED ON THE TOP FLOOR, DEXTER STATES THERE IS AN ELEVATOR THAT SHE WILL TAKE.
--- NOTE | 2023-01-31 22:00 | NUR ---
Patient discharged with v/s stable. Written and verbal after care instructions given and explained. Patient alert, oriented and verbalized understanding of instructions. Wheel Chair Assisted with to car. All questions addressed prior to discharge. ID band removed. Patient advised to follow up with PMD. Rx of ZITHROMAX, VIBRAMYCIN given. Patient educated on indication of medication including possible reaction and side effects. Opportunity to ask questions provided and answered.
== END 2023-01-31 22:00 | disposition home or self-care (01) ==
LOC: MED 15:37
DX: J18.9 Pneumonia, unspecified organism (principal); E11.9 Type 2 diabetes mellitus without complications; I10 Essential (primary) hypertension; Z86.73 Personal history of transient ischemic attack (TIA), and cerebral infarction without residual deficits; Z85.42 Personal history of malignant neoplasm of other parts of uterus; Z79.4 Long term (current) use of insulin; Z79.899 Other long term (current) drug therapy
CPT/HCPCS: 36415; 71045; 80053; 83880; 84484; 85025; 93005; 96372; 99285; J1885

== ENCOUNTER 2023-02-28 13:19 | Emergency (ER) | payer MEDICARE, OTHER ==
[~2023-02-28] VITALS: Ht 170.2 cm; Wt 77.1 kg
[~2023-02-28 13:19] MED LIST changes: +AZIT250T3 PO; +DOXY-690 PO
[2023-02-28 13:21] VITALS: BP 132/84
--- NOTE | 2023-02-28 13:50 | NUR ---
PATIENT TO CT SCAN
[2023-02-28] MEDS ORDERED: LID5T TP (14:30)
[2023-02-28 15:18] VITALS: BP 97/70
--- NOTE | 2023-02-28 15:26 | NUR ---
Patient discharged with v/s stable. Written and verbal after care instructions NECK - HEAD ACHE given and explained. Patient verbalized understanding. Ambulatory with to car. All questions addressed prior to discharge. Advised to follow up with PMD. Pt. was road tested with walker and she was steady. Awake and alet. Stable for D/C. No acute distress. Uber called for pt. to go home
== END 2023-02-28 15:18 | disposition home or self-care (01) ==
LOC: MED 13:19
DX: S16.1XXA Strain of muscle, fascia and tendon at neck level, initial encounter (principal); I10 Essential (primary) hypertension; E11.9 Type 2 diabetes mellitus without complications; I25.10 Atherosclerotic heart disease of native coronary artery without angina pectoris; Z86.73 Personal history of transient ischemic attack (TIA), and cerebral infarction without residual deficits; Z79.4 Long term (current) use of insulin; Z79.899 Other long term (current) drug therapy; W18.30XA Fall on same level, unspecified, initial encounter; Y93.89 Activity, other specified; Y92.89 Other specified places as the place of occurrence of the external cause; Y99.8 Other external cause status
CPT/HCPCS: 70450; 72125; 99284

== ENCOUNTER 2023-05-28 10:22 | Emergency (ER) | payer MEDICARE, OTHER ==
[~2023-05-28] VITALS: Ht 162.6 cm; Wt 87.7 kg
[~2023-05-28 10:22] MED LIST changes: +LID5T TP
[2023-05-28 10:27] VITALS: BP 140/106; PULSE 66; RESP 20; TEMP 98.4; O2SAT 95
--- NOTE | 2023-05-28 10:30 | NUR ---
PT AMBULATED W/ 4 WHEEL WALKER TO BED 11
--- NOTE | 2023-05-28 10:50 | NUR ---
IN TO SEE PT AT BEDSIDE
--- NOTE | 2023-05-28 11:00 | NUR ---
RAN UA SAMPLE TO LAB
--- NOTE | 2023-05-28 11:08 | NUR ---
PT TAKEN TO CT VIA HIREN
--- NOTE | 2023-05-28 11:18 | NUR ---
Patient appears to be resting comfortably in bed. Vital Signs within normal limits. Respirations even and unlabored. CALL LIGHT WITHIN REACH.
[2023-05-28 11:24] LABS: APPEARANCE,URINE CLEAR (CLEAR); BILIRUBIN,URINE 1+ (NEGATIVE); BLOOD, URINE NEGATIVE (NEGATIVE); COLOR,URINE YELLOW (YELLOW); LEUKOCYTE ESTERASE ,URINE 1+ (NEGATIVE); NITRITE, URINE NEGATIVE (NEGATIVE); UGLUCOSE NEGATIVE (NEGATIVE)
[2023-05-28 11:40] LABS: CALCIUM OXALATE CRYSTALS,UR 50-70 /HPF (None Seen); RBC,URINE 0-5 /HPF (0-5)
[2023-05-28] MEDS ORDERED: KETOROLAC 15 MG/ML VIAL IVP ONE (12:05)
--- NOTE | 2023-05-28 12:10 | NUR ---
PT SLEEPING, NO SIGNS OF DISTRESS NOTED AT THIS TIME
[2023-05-28 12:14] LABS: BASOPHILS # (AUTO) 0.1 K/uL (0.00-0.22); BASOPHILS % (AUTO) 1.3 % (0.0-2.0); EOSINOPHILS # (AUTO) 0.2 K/uL (0-0.4); EOSINOPHILS % (AUTO) 2.3 % (0.0-4.0); HEMATOCRIT 41.2 % (36-48); HEMOGLOBIN 13.8 g/dL (12.0-16.0); LYMPHOCYTES # (AUTO) 1.8 K/uL (2.5-16.5); LYMPHOCYTES % (AUTO) 26.4 % (20.5-51.1); MEAN CORPUSCULAR HEMOGLOBIN 31 pg (27-31); MEAN CORPUSCULAR HGB CONC 34 g/dL (33-37); MEAN CORPUSCULAR VOLUME 91.8 fL (80-94); MONOCYTES # (AUTO) 0.7 K/uL (0.8-1.0); MONOCYTES % (AUTO) 9.8 % (1.7-9.3); NEUTROPHILS # (AUTO) 4.1 K/uL (1.8-7.7); NEUTROPHILS % (AUTO) 60.2 % (42.2-75.2); PLATELET COUNT (AUTO) 220 K/uL (140-450); RED BLOOD CELL COUNT(AUTO) 4.48 MIL/uL (4.20-5.40); RED CELL DISTRIBUTION WIDTH 14.6 % (11.6-13.7); WHITE BLOOD COUNT (AUTO) 6.9 K/uL (4.8-10.8)
[2023-05-28 13:02] LABS: ALBUMIN 3.5 g/dL (3.4-5.0); ANION GAP 12.1 (8-16); ASPARTATE AMINOTRANSFERASE 27 U/L (15-37); CHLORIDE 101 mmol/L (98-107); CREATININE 0.7 mg/dL (0.6-1.3); GFR ARICAN-AMERICAN 107 mL/min (>90); GLUCOSE 86 mg/dL (74-106); POTASSIUM 4.1 mmol/L (3.5-5.1); SODIUM SERUM 138 mmol/L (136-145); TOTAL BILIRUBIN 0.5 mg/dL (0.0-1.0); UREA NITROGEN, BLOOD 17 mg/dL (7-18)
--- NOTE | 2023-05-28 13:07 | NUR ---
PT RESTING COMFORTABLY, NO SIGNS OF DISTRESS NOTED AT THIS TIME
[2023-05-28] MEDS ORDERED: CEPH-588 PO (13:08)
[2023-05-28 14:02] VITALS: BP 147/78; PULSE 61; RESP 16; TEMP 97.9; O2SAT 94
--- NOTE | 2023-05-28 14:04 | NUR ---
Patient discharged with v/s stable. Written and verbal after care instructions given and explained. Patient alert, oriented and verbalized understanding of instructions. Ambulatory with steady gait. All questions addressed prior to discharge. ID band removed. Patient advised to follow up with PMD. Rx of KELFEX given. Patient educated on indication of medication including possible reaction and side effects. Opportunity to ask questions provided and answered.
== END 2023-05-28 14:02 | disposition home or self-care (01) ==
LOC: MED 10:22
DX: N39.0 Urinary tract infection, site not specified (principal); R07.9 Chest pain, unspecified; R53.1 Weakness; R51.9 Headache, unspecified; E11.9 Type 2 diabetes mellitus without complications; I10 Essential (primary) hypertension; G40.909 Epilepsy, unspecified, not intractable, without status epilepticus; Z86.73 Personal history of transient ischemic attack (TIA), and cerebral infarction without residual deficits; Z88.2 Allergy status to sulfonamides; Z88.5 Allergy status to narcotic agent; Z79.899 Other long term (current) drug therapy; Z79.4 Long term (current) use of insulin
CPT/HCPCS: 36415; 70450; 71045; 80053; 81001; 82550; 84484; 85025; 87086; 93005; 96374; 99285; J1885

== ENCOUNTER 2023-07-09 11:19 | Emergency (ER) | payer MEDICARE, OTHER ==
[~2023-07-09] VITALS: Ht 162.6 cm; Wt 90.7 kg
[~2023-07-09 11:19] MED LIST changes: +CEPH-588 PO
[2023-07-09 11:37] VITALS: BP 142/80; PULSE 70; RESP 18; TEMP 98.2; O2SAT 98
[2023-07-09] MEDS ORDERED: KETOROLAC 30 MG/ML VIAL IM ONE (11:45)
[2023-07-09] MEDS ORDERED: LIDOCAINE 5% 1 EA PATCH TP ONE (11:45)
[2023-07-09] MEDS ORDERED: methocarbamoL 500 MG TAB PO ONE (11:45)
[2023-07-09 13:42] VITALS: O2SAT 98
[2023-07-09] MEDS ORDERED: LID5T TP (13:48)
[2023-07-09] MEDS ORDERED: CYCL-711 PO (13:48)
== END 2023-07-09 14:30 | disposition home or self-care (01) ==
LOC: MED 11:19
DX: S39.012A Strain of muscle, fascia and tendon of lower back, initial encounter (principal); E11.9 Type 2 diabetes mellitus without complications; I10 Essential (primary) hypertension; Z86.73 Personal history of transient ischemic attack (TIA), and cerebral infarction without residual deficits; Z88.2 Allergy status to sulfonamides; Z88.5 Allergy status to narcotic agent; Z79.4 Long term (current) use of insulin; Z79.899 Other long term (current) drug therapy; X58.XXXA Exposure to other specified factors, initial encounter; Y93.89 Activity, other specified; Y92.89 Other specified places as the place of occurrence of the external cause; Y99.8 Other external cause status
CPT/HCPCS: 96372; 99283; J1885

== ENCOUNTER 2023-08-20 06:15 | Day surgery (SDC) | payer MEDICARE, OTHER ==
[~2023-08-20] VITALS: Ht 162.6 cm; Wt 83.0 kg
[~2023-08-20 06:15] MED LIST changes: +CYCL-711 PO
[2023-08-20 07:28] LABS: BASOPHILS # (AUTO) 0.1 K/uL (0.00-0.22); BASOPHILS % (AUTO) 1.7 % (0.0-2.0); EOSINOPHILS # (AUTO) 0.2 K/uL (0-0.4); EOSINOPHILS % (AUTO) 3.1 % (0.0-4.0); HEMATOCRIT 41.7 % (36-48); LYMPHOCYTES # (AUTO) 2.1 K/uL (2.5-16.5); LYMPHOCYTES % (AUTO) 28.6 % (20.5-51.1); MEAN CORPUSCULAR HEMOGLOBIN 31 pg (27-31); MEAN CORPUSCULAR HGB CONC 34 g/dL (33-37); MEAN CORPUSCULAR VOLUME 91.7 fL (80-94); MONOCYTES # (AUTO) 0.7 K/uL (0.8-1.0); MONOCYTES % (AUTO) 9.6 % (1.7-9.3); NEUTROPHILS # (AUTO) 4.2 K/uL (1.8-7.7); PLATELET COUNT (AUTO) 243 K/uL (140-450); RED BLOOD CELL COUNT(AUTO) 4.54 MIL/uL (4.20-5.40); RED CELL DISTRIBUTION WIDTH 14.6 % (11.6-13.7); WHITE BLOOD COUNT (AUTO) 7.4 K/uL (4.8-10.8)
[2023-08-20 07:49] LABS: ALBUMIN 3.5 g/dL (3.4-5.0); CALCIUM 9.5 mg/dL (8.5-10.1); CREATININE 1.1 mg/dL (0.6-1.3); POTASSIUM 4.3 mmol/L (3.5-5.1); TOTAL BILIRUBIN 0.7 mg/dL (0.0-1.0)
[2023-08-20 08:03] LABS: ANION GAP 15.6 (8-16); CARBON DIOXIDE 22.7 mmol/L (21-32); TOTAL PROTEIN, SERUM 7.4 g/dL (6.4-8.2)
[2023-08-20] MEDS ORDERED: MIDAZOLAM 5 MG/5 ML VIAL ONE (08:29)
[2023-08-20] MEDS ORDERED: ESMOLOL 10 ML IV ONE (09:23)
[2023-08-20] MEDS ORDERED: METOPROLOL 5 MG/5 ML VIAL ONE (09:24)
[2023-08-20] MEDS ORDERED: hydrALAZINE 20 MG/ML VIAL ONE (09:30)
[2023-08-20] MEDS ORDERED: hydrALAZINE 20 MG/ML VIAL IVP PRN (09:35)
== END 2023-08-20 11:10 | disposition home or self-care (01) ==
LOC: MDS 06:15 → MMU 06:47 → MDS 11:10
PROVIDERS: ATTEND Internal Medicine Gastroenterology
DX: K52.9 Noninfective gastroenteritis and colitis, unspecified (principal); I11.0 Hypertensive heart disease with heart failure; I50.9 Heart failure, unspecified; I25.10 Atherosclerotic heart disease of native coronary artery without angina pectoris; E11.9 Type 2 diabetes mellitus without complications; E78.5 Hyperlipidemia, unspecified; K21.9 Gastro-esophageal reflux disease without esophagitis; Z80.0 Family history of malignant neoplasm of digestive organs; G40.909 Epilepsy, unspecified, not intractable, without status epilepticus; F41.9 Anxiety disorder, unspecified; Z95.5 Presence of coronary angioplasty implant and graft; Z88.1 Allergy status to other antibiotic agents; Z86.73 Personal history of transient ischemic attack (TIA), and cerebral infarction without residual deficits; Z79.899 Other long term (current) drug therapy
CPT/HCPCS: 36415; 45380; 71045; 80053; 82948; 85025; 93005; J0360; J2250; J3490